=== PATIENT | female | born 1940 | race Caucasian/White ===

== ENCOUNTER 2019-02-26 18:01 | Inpatient (IN) ==
[2019-02-26] MEDS ORDERED: SODIUM CHLORIDE 0.9% 500 ML IV SCH (18:30)
--- NOTE | 2019-02-26 18:34 | XRay Report ---
XR chest 1V portable CLINICAL HISTORY: Chest Pain dyspnea COMPARISON STUDY: No previous studies for comparison. FINDINGS: The bones soft tissues and hemidiaphragms are normal. The cardiomediastinal silhouette is n ormal. The lungs are clear. The pulmonary vasculature is normal. IMPRESSION: Negative chest. The above report was generated using voice recognition software. It may contain grammatical, syntax or spelling errors. Electronically signed by: Mal Davis M.D. 02/26/2019 6:33 PM
[2019-02-26] MEDS: METOPROLOL TARTRATE 1 MG/ML VIAL IV PRN ×3 (18:37→19:17)
[2019-02-26 18:40] LABS: Basophils # (auto) 0.05 K/uL (0-0.2); Basophils % (auto) 0.7 %; Eosinophils # (auto) 0.09 K/uL (0-0.5); Eosinophils % (auto) 1.2 %; Hematocrit (blood only) 40.8 % (37-47); Hemoglobin 13.8 g/dL (12.0-16.0); Immature Granulocytes # (auto) 0.02 K/uL (0.00-0.02); Immature Granulocytes % (auto) 0.3 %; Lymphocytes # (auto) 1.51 K/uL (1.2-3.4); Lymphocytes % (auto) 20.1 %; Mean Corpuscular Hemoglobin 32.5 pg (25-34); Mean Corpuscular Hgb Conc 33.8 g/dL (32-36); Mean Corpuscular Volume 96.2 fL (80-100); Mean Platelet Volume 11.7 fL (7.4-10.4); Monocytes # (auto) 0.46 K/uL (0.11-0.59); Monocytes % (auto) 6.1 %; Neutrophils # (auto) 5.39 K/uL (1.4-6.5); Neutrophils % (auto) 71.6 %; Platelet Count 230 K/uL (130-400); RDW Standard Deviation 48.7 fL (36.4-46.3); Red Blood Count 4.24 M/uL (4.2-5.4); White Blood Count 7.52 K/uL (4.8-10.8)
[2019-02-26 18:59] LABS: Alanine Aminotransferase 49 U/L (12-78); Albumin Level 4.1 gm/dl (3.4-5.0); Aspartate Aminotransferase 38 U/L (15-37); BUN Creatinine Ratio 18.7 (10-20); Blood Urea Nitrogen 18 mg/dl (7-18); Calcium 9.6 mg/dl (8.5-10.1); Carbon Dioxide 27 mmol/L (21-32); Chloride 101 mmol/L (98-107); Creatinine Clr Calc Pharmacy 46.8 ml/min; Est GFR (African American) 64.5; Est GFR (Non-African American) 55.6; Glucose 111 mg/dl (70-99); Lipase 79 U/L (73-393); Potassium 3.7 mmol/L (3.5-5.1); Sodium 135 mmol/L (136-145)
[2019-02-26 19:04] LABS: Alkaline Phosphatase 78 U/L (45-117); Bilirubin,Total 0.9 mg/dl (0.2-1); Globulin 4.2 gm/dl (2.5-4.0); Total Protein 8.3 gm/dl (6.4-8.2); Troponin I < 0.015 ng/ml (0-0.045)
[2019-02-26] MEDS ORDERED: METOPROLOL TARTRATE 25 MG TAB PO STA (19:59)
[2019-02-26] MEDS ORDERED: POTASSIUM CHLORIDE 20 MEQ TABCR PO STA (20:00)
[2019-02-26] MEDS ORDERED: METOPROLOL TARTRATE 50 MG TAB PO STA (20:01)
[2019-02-26 20:18] LABS: Partial Thromboplastin Ratio 0.9; Partial Thromboplastin Time 24.6 Seconds (21.0-31.0)
[2019-02-26] MEDS ORDERED: Heparin IV Standard *NO* Bolus IV ONE (20:25)
[2019-02-26 20:28] LABS: Magnesium 1.9 mg/dl (1.8-2.4)
[2019-02-26] MEDS ORDERED: MAGNESIUM SULFATE / D5W 1 GM/100 ML BAG IV ONE (20:37)
[2019-02-26 20:40] LABS: T4 Free Thyroxine 1.44 ng/dl (0.8-1.6)
[2019-02-26] MEDS ORDERED: MAGNESIUM SULFATE 1GM / D5W BAG IV ONE (20:47)
[2019-02-26] MEDS ORDERED: HEPARIN 25000 UNIT/500 ML D5W IV ONE (20:48)
[2019-02-26] MEDS ORDERED: dilTIAZem HCl 5 MG/ML 5 ML VIAL IV STA (21:00)
--- NOTE | 2019-02-26 21:01 | History & Physical Report ---
Date of Service February 26, 2019 Assessment & Plan (1) Atrial fibrillation with RVR: New onset Unclear precipitant Hyperglycemia rule out DM PCU Change home Atenolol to Lopressor to allow for titration for higher dose IV heparin for thromboembolic prophylaxis TTE, Cardiology consult RE new onset A. fib (Patient's family requesting for Dr. Prince.) Check hemoglobin A1c DVT prophylaxis. Heparin Full code Patient's requesting updates from providers. Mr. Sheldon Crowell, contact #[phone]. History of Present Illness Chief Complaint: Chest discomfort, shortness of breath Primary Care Provider: Inga Fontaine PA-C History obtained from patient, family, and records. Medical history significant for hypertension, glaucoma, history Lyme disease status post Rx. Last week patient noted nasal congestion symptoms, self-limiting. No OTC decongestant intake. Few days history of chest pressure, shortness of breath especially on exertion. No cough, no palpitations. Legs a little more swollen than usual. Fatigue symptoms noted as well. Recent travel to [place] for a family vacation a few weeks ago. Patient compliant with home medications. Does not check blood pressure at home. Patient seen at PCPs office. EKG showed A. fib. Patient sent to the ER for evaluation. Medical History as above Surgical History : Breast reduction, BTL, cataract surgery Family History : Stroke, heart disease, leukemia Personal/Social history : Non-smoker, occasional EtOH intake, retired medical b illing specialist Allergies Allergy/AdvReac Type Severity Reaction Status Date / Time latex Allergy Unknown HIVES Verified 02/26/19 19:52 No Known Drug Allergies Allergy Unknown . Verified 12/28/15 06:24 Home Medications Home Medications Medication Instructions Recorded Confirmed Type C,E,zinc,copper [id number] 1 cap PO DAILY 02/26/19 02/26/19 History [Ocuvite Adult 50 Plus] aspirin [Aspir-81] 81 mg PO DAILY 02/26/19 02/26/19 History atenolol 25 mg PO BID 02/26/19 02/26/19 History hydrochlorothiazide 25 mg PO DAILY 02/26/19 02/26/19 History loratadine 10 mg PO DAILY PRN 02/26/19 02/26/19 History multivitamin [Multiple Vitamins] 1 tab PO DAILY 02/26/19 02/26/19 History travoprost [Travatan Z] 1 drp OPB HS 02/26/19 02/26/19 History Past Med/Surg History Medical History Hypertension Surgical History No pertinent past surgical history Social History Preferred Language: Surinamese Communication Ability: Effective Sash Repairer Required: No Beliefs That Will Affect Care: None Current Living Situation: Spouse Other Information That Helps Us Care for You: No Feels Safe at Home: Yes Safety Concerns: Feels Safe At This Time Smoking Status: Never smoker Do You Dip or Chew Tobacco: No ; Second Hand Exposure: No ; Tobacco Cessation Education Requested by Patient: No Hx Alcohol Use: No Hx Substance Use: No Review of Systems Review of Systems: As per HPI, all 10 systems reviewed, all other ROS negative Physical Exam Physical Exam: GENERAL: Comfortable, obese, pleasant, no respiratory distress SKIN: Normal color, warm HEENT: [place] palpebral conjunctivae, no ptosis, dry buccal mucosa NECK : Supple, short neck, no tenderness CHEST : CTA, no tenderness HEART : Tachycardic, irregular, no obvious murmurs ABDOMEN: Some distention, nontender EXTREMITIES : Minimal LE swelling, no LE tenderness, no other conspicuous deformities noted NEUROLOGIC : Coherent, no facial asymmetry, no other gross focality Results & Data Vital Signs (Past 12 Hours) Vital Signs Temp Pulse Resp BP Pulse Ox 02/26/19 19:17 133 H 144/83 H 02/26/19 19:15 130 H 19 144/83 H 98 02/26/19 19:00 147 H 19 134/85 97 02/26/19 18:50 133 H 16 123/97 96 02/26/19 18:45 149 H 23 99 02/26/19 18:40 132 H 15 97 02/26/19 18:38 97 02/26/19 18:37 132 H 21 164/58 H 97 02/26/19 18:30 135 H 19 97 02/26/19 18:22 142 H 20 02/26/19 18:05 36.4 C L 114 H 18 159/101 H 98 Laboratory Results Laboratory Results WBC 7.52 K/uL (4.8-10.8) 02/26/19 18:30 RBC 4.24 M/uL (4.2-5.4) 02/26/19 18:30 Hgb 13.8 g/dL (12.0-16.0) 02/26/19 18:30 Hct 40.8 % (37-47) 02/26/19 18:30 MCV 96.2 fL (80-100) 02/26/19 18:30 MCH 32.5 pg (25-34) 02/26/19 18: MCHC 33.8 g/dL (32-36) 02/26/19 18:30 RDW Std Deviation 48.7 fL (36.4-46.3) H 02/26/19 18:30 RDW Coeff of Harsha 14.0 % (11.5-14.5) 02/26/19 18: Plt Count 230 K/uL (130-400) 02/26/19 18:30 MPV 11.7 fL (7.4-10.4) H 02/26/19 18:30 Immature Gran % (Auto) 0.3 % 02/26/19 18:30 Neut % (Auto) 71.6 % 02/26/19 18:30 Lymph % (Auto) 20.1 % 02/26/19 18:30 [place] % (Auto) 6.1 % 02/26/19 18:30 Eos % (Auto) 1.2 % 02/26/19 18:30 Baso % (Auto) 0.7 % 02/26/19 18:30 Immature Gran # (Auto) 0.02 K/uL (0.00-0.02) 02/26/19 18:30 Neut # (Auto) 5.39 K/uL (1.4-6.5) 02/26/19 18:30 Lymph # (Auto) 1.51 K/uL (1.2-3.4) 02/26/19 18:30 [place] # (Auto) 0.46 K/uL (0.11-0.59) 02/26/19 18:30 Eos # (Auto) 0.09 K/uL (0-0.5) 02/26/19 18:30 Baso # (Auto) 0.05 K/uL (0-0.2) 02/26/19 18:30 APTT 24.6 Seconds (21.0-31.0) 02/26/19 18:30 PTT Ratio 0.9 02/26/19 18:30 Sodium 135 mmol/L (136-145) L 02/26/19 18:30 Potassium 3.7 mmol/L (3.5-5.1) 02/26/19 18:30 Chloride 101 mmol/L (98-107) 02/26/19 18:30 Carbon Dioxide 27 mmol/L (21-32) 02/26/19 18:30 Anion Gap 7.0 (3-11) 02/26/19 18:30 BUN 18 mg/dl (7-18) 02/26/19 18:30 Creatinine 0.98 mg/dl (0.6-1.2) 02/26/19 18:30 Est Cr Clr Drug Dosing 46.8 ml/min 02/26/19 18:30 Est GFR ( Amer) 64.5 02/26/19 18:30 Est GFR (Non-Af Amer) 55.6 02/26/19 18:30 BUN/Creatinine Ratio 18.7 (10-20) 02/26/19 18:30 Glucose 111 mg/dl (70-99) H 02/26/19 18:30 Calcium 9.6 mg/dl (8.5-10.1) 02/26/19 18:30 Magnesium 1.9 mg/dl (1.8-2.4) 02/26/19 18:30 Total Bilirubin 0.9 mg/dl (0.2-1) 02/26/19 18:30 AST 38 U/L (15-37) H 02/26/19 18:30 ALT 49 U/L (12-78) 02/26/19 18:30 Alkaline Phosphatase 78 U/L (45-117) 02/26/19 18:30 Troponin I < 0.015 ng/ml (0-0.045) 02/26/19 18:30 Total Protein 8.3 gm/dl (6.4-8.2) H 02/26/19 18:30 Albumin 4.1 gm/dl (3.4-5.0) 02/26/19 18:30 Globulin 4.2 gm/dl (2.5-4.0) H 02/26/19 18:30 Albumin/Globulin Ratio 1.0 (0.9-2) 02/26/19 18:30 Lipase 79 U/L (73-393) 02/26/19 18:30 TSH 5.540 uIu/ml (0.300-4.500) H 02/26/19 18:30 Free T4 1.44 ng/dl (0.8-1.6) 02/26/19 18:[address] chest: 1. No evidence for pulmonary embolus. 2. Very small bilateral pleural effusions with findings of pulmonary vascular congestion. EKG as per my interpretation: Rate 145, A. fib, LAD, LAFB, T wave flattening inferior leads abnormalities inferior leads
[2019-02-26] MEDS ORDERED: OPTIRAY 320 125ml IV PRN (21:19)
--- NOTE | 2019-02-26 21:32 | CT Scan Report ---
CT angio chest PE protocol CT DOSE: 458.71 mGy.cm HISTORY: Chest pain PE TECHNIQUE: Multiaxial CT images of the chest were performed following the intravenous administration of contrast to evaluate the pulmonary arteries. Maximal intensity projection images were also obtaine d. A dose lowering technique was utilized adhering to the principles of ALARA. COMPARISON STUDY: None. FINDINGS: The pulmonary vasculature enhances appropriately. There are no filling defects. Lungs are grossly clear. Moderate prominence of the pulmonary vasculature. Small right and to a lesse r extent left pleural effusion. No evidence for focal infiltrative change. IMPRESSION: 1. No evidence for pulmonary embolus. 2. Very small bilateral pleural effusions with findings of pulmonary vascular congestion. The above report was generated using voice recognition software. It may contain grammatical, syntax or spelling errors. Electronically signed by: Mal Davis M.D. 02/26/2019 9:31 PM
[2019-02-26] MEDS: HEPARIN SODIUM/DEXTROSE 25,000 UNITS/500 ML BAG IV SCH (21:39)
[2019-02-26] MEDS ORDERED: TRAMADOL HCL 50 MG TABLET PO PRN (22:35)
[2019-02-26] MEDS ORDERED: LORATADINE 10 MG TAB PO PRN (22:35)
[2019-02-26] MEDS ORDERED: PROMETHAZINE HCL 12.5 MG in SODIUM CHLORIDE 0.9% 50 ML IV PRN (22:35)
[2019-02-26] MEDS ORDERED: ACETAMINOPHEN 325 MG TAB PO PRN (22:35)
--- NOTE | 2019-02-26 23:01 | Emergency Department Note ---
Entered by Yuli Metzger acting as a scribe for History of Present Illness General Chief complaint: Cardiac Assessment Stated complaint: REF BY CRAIG GREER FOR CARDIAC ASSESSMENT Source: patient History of Present Illness Onset (ago): day(s) 3 Location: chest Pain Consistency: + constant Quality: + other (pressure) Exacerbated By: + other (walking) Associated symptoms: + other (palpitations); no diaphoresis, no fever/chills and no nausea/vomiting Treatments prior to arrival: none The patient is a 79 year old female who presents to the Emergency Room with complaints of shortness of breath and chest pressure that has been present for the past 3 days. The patient reports that she is experiencing some chest pressure that has been constant. The chest pain and shortness of breath is exacerbated with walking. She denies nausea, vomiting, fever, or sweating. The patient reports experiencing some palpitation, which are intermittent. She also complains of weakness over the past few days. The patient had an EKG done at her PCP, which showed A-fib. He recommended that the patient come to the ED to be evaluated. The patient reports a history of hypertension, and takes baby aspirin daily. Home Medications Home Medications Medication Instructions Recorded Confirmed Type C,E,zinc,copper [id number] 1 cap PO DAILY 02/26/19 02/26/19 History [Ocuvite Adult 50 Plus] aspirin [Aspir-81] 81 mg PO DAILY 02/26/19 02/26/19 History atenolol 25 mg PO BID 02/26/19 02/26/19 History hydrochlorothiazide 25 mg PO DAILY 02/26/19 02/26/19 History loratadine 10 mg PO DAILY PRN 02/26/19 02/26/19 History multivitamin [Multiple Vitamins] 1 tab PO DAILY 02/26/19 02/26/19 History travoprost [Travatan Z] 1 drp OPB HS 02/26/19 02/26/19 History Allergies Allergy/AdvReac Type Severity Reaction Status Date / Time latex Allergy Unknown HIVES Verified 02/26/19 19:52 No Known Drug Allergies Allergy Unknown . Verified 12/28/15 06:24 Past Med/Surg History Medical History Hypertension Surgical History No pertinent past surgical history Social History Preferred Language: Korean Communication Ability: Effective On Call Pharmacy Technician Required: No Beliefs That Will Affect Care: None Current Living Situation: Spouse Other Information That Helps Us Care for You: No Feels Safe at Home: Yes Safety Concerns: Feels Safe At This Time Smoking Status: Never smoker Do You Dip or Chew Tobacco: No ; Second Hand Exposure: No ; Tobacco Cessation Education Requested by Patient: No Hx Alcohol Use: No Hx Substance Use: No Review of Systems See HPI for pertinent positives & negatives. and A total of 10 systems reviewed and were otherwise negative Physical Exam Vital Signs Vital Signs - 24 hr 02/26/19 18:05 02/26/19 18:22 02/26/19 18:30 Temperature 36.4 C L Temperature Source Oral Pulse Rate 114 H 142 H 135 H Pulse Rate from SpO2 Sensor 104 H Respiratory Rate 18 20 19 Blood Pressure 159/101 H Blood Pressure Mean 120 Pulse Oximetry 98 97 Oxygen Delivery Method Room Air Sepsis Recent Fever Within 48 Hours No Sepsis New/Unexplained Change in Mental Status No Sepsis Action Taken by Nursing No Action Required 02/26/19 18:37 02/26/19 18:38 02/26/19 18:40 Temperature Temperature Source Pulse Rate 132 H 132 H Pulse Rate from SpO2 Sensor 114 H 107 H Respiratory Rate 21 15 Blood Pressure 164/58 H Blood Pressure Mean 66 Pulse Oximetry 97 97 97 Oxygen Delivery Method Room Air Sepsis Recent Fever Within 48 Hours Sepsis New/Unexplained Change in Mental Status Sepsis Action Taken by Nursing 02/26/19 18:45 02/26/19 18:50 02/26/19 19:00 Temperature Temperature Source Pulse Rate 149 H 133 H 147 H Pulse Rate from SpO2 Sensor 124 H 133 H 95 H Respiratory Rate 23 16 19 Blood Pressure 123/97 134/85 Blood Pressure Mean 104 101 Pulse Oximetry 99 96 97 Oxygen Delivery Method Sepsis Recent Fever Within 48 Hours Sepsis New/Unexplained Change in Mental Status Sepsis Action Taken by Nursing 02/26/19 19:15 02/26/19 19:17 02/26/19 19:31 Temperature Temperature Source Pulse Rate 130 H 133 H 128 H Pulse Rate from SpO2 Sensor 86 79 Respiratory Rate 19 17 Blood Pressure 144/83 H 144/83 H 138/110 H Blood Pressure Mean 93 122 Pulse Oximetry 98 96 Oxygen Delivery Method Room Air Sepsis Recent Fever Within 48 Hours Sepsis New/Unexplained Change in Mental Status Sepsis Action Taken by Nursing 02/26/19 19:46 02/26/19 20:00 02/26/19 20:16 Temperature Temperature Source Pulse Rate 123 H 137 H 125 H Pulse Rate from SpO2 Sensor 107 H 113 H 108 H Respiratory Rate 17 16 20 Blood Pressure 147/91 H 146/99 H 143/73 H Blood Pressure Mean 106 114 88 Pulse Oximetry 97 99 98 Oxygen Delivery Method Sepsis Recent Fever Within 48 Hours Sepsis New/Unexplained Change in Mental Status Sepsis Action Taken by Nursing 02/26/19 20:31 02/26/19 20:45 Temperature Temperature Source Pulse Rate 129 H 128 H Pulse Rate from SpO2 Sensor 115 H Respiratory Rate 23 26 H Blood Pressure 135/96 158/98 H Blood Pressure Mean 110 140 Pulse Oximetry 98 98 Oxygen Delivery Method Sepsis Recent Fever Within 48 Hours Sepsis New/Unexplained Change in Mental Status Sepsis Action Taken by Nursing GENERAL: sitting up in bed, wearing hospital gown, talking in full sentences, al ert, well nourished, no acute distress, non-toxic EYE EXAM: normal conjunctiva, PERRL and EOM's grossly intact OROPHARYNX: no exudate, no erythema, lips, buccal mucosa, and tongue normal and mucous membranes are moist NECK: supple, no nuchal rigidity, no adenopathy, non-tender LUNGS: Clear to auscultation. Normal chest wall mechanics HEART: Tachycardic. Irregularly irregular rhythm, S1 normal and S2 normal ABDOMEN: abdomen soft, non-tender, normo-active bowel sounds, no masses, no rebound or guarding. SKIN: no rashes and no bruising UPPER EXTREMITIES: upper extremities are grossly normal. LOWER EXTREMITIES: No pitting edema. Calves equal bilaterally. NEURO EXAM: Normal sensorium, cranial nerves II-XII grossly intact, normal speech, no gross weakness of arms, no gross weakness of legs. Course Course 1810: Past medical records reviewed. The patient was evaluated in room A12B. A complete history and physical exam was performed. 1855: I rechecked on the patient, who was receiving her second dose of Lopressor 5 mg IV. Her blood pressure was at 130, with heart rate at 120. She has no complaints after the second dose. 1952: I spoke to Dr. Vera, [facility] Hospitalist, regarding the patient. He agreed to take over care of the patient. The patient verbally expressed understanding and agreement of the treatment plan. The patient will be evaluated for further treatment. 2011: Monitor shows the patient's heart rate 131 with RVR Administered Medications Heparin Sodium/Dextrose (Heparin Sodium/Dextrose) 25,000 units in 500 mls @ 22 mls/hr IV .[id number] [facility]; Protocol Stop: 03/28/19 20:29 Last Admin: 02/26/19 21:39 Dose: 1,100 units/hr, 22 mls/hr Documented by: [id number] Cosigned by: [id number] Ioversol (Optiray 320 125ml) 120 ml IV ONCE PRN PRN Reason: Interaction Checking Stop: 03/02/19 21:18 Last Admin: 02/26/19 21:19 Dose: 120 ml Documented by: [id number] Discontinued Medications Diltiazem HCl (Cardizem) 20 mg IV NOW STA Stop: 02/26/19 21:01 Last Admin: 02/26/19 21:29 Dose: 20 mg Documented by: [id number] Cosigned by: [id number] Heparin Sodium/Dextrose (Heparin Sodium/Dextrose) Confirm Administered Dose 25,000 units IV .STK-MED ONE Stop: 02/26/19 20:49 Last Admin: 02/26/19 21:00 Dose: Not Given Documented by: [id number] Sodium Chloride (Nss) 500 mls @ 999 mls/hr IV .Q31M [facility] Stop: 02/26/19 19:00 Last Infusion: 02/26/19 19:08 Dose: 0 mls/hr Documented by: [id number] Admin: 02/26/19 18:37 Dose: 999 mls/hr Documented by: [id number] Magnesium Sulfate/Dextrose (Magnesium Sulfate / D5w) 1 gm in 100 mls @ 100 mls/hr IV ONE ONE Stop: 02/26/19 21:36 Last Infusion: 02/26/19 22:36 Dose: 0 mls/hr Documented by: [id number] Admin: 02/26/19 21:29 Dose: 100 mls/hr Documented by: [id number] Magnesium Sulfate/Dextrose (Magnesium Sulfate / D5w) Confirm Administered Dose 1 gm IV .STK-MED ONE Stop: 02/26/19 20:48 Last Admin: 02/26/19 21:00 Dose: Not Given Documented by: [id number] Metoprolol Tartrate (Lopressor) 5 mg IV Q5M PRN PRN Reason: Tachycardia Stop: 03/28/19 18:17 Last Admin: 02/26/19 19:17 Dose: 5 mg Documented by: [id number] Admin: 02/26/19 18:50 Dose: 5 mg Documented by: [id number] Admin: 02/26/19 18:37 Dose: 5 mg Documented by: [id number] Metoprolol Tartrate (Lopressor) 25 mg PO NOW STA Stop: 02/26/19 20:00 Last Admin: 02/26/19 20:32 Dose: Not Given Documented by: [id number] Metoprolol Tartrate (Lopressor) 50 mg PO NOW STA Stop: 02/26/19 20:02 Last Admin: 02/26/19 20:33 Dose: 50 mg Documented by: [id number] Potassium Chloride (Klor-Con M20) 40 meq PO NOW STA Stop: 02/26/19 20:01 Last Admin: 02/26/19 20:33 Dose: 40 meq Documented by: [id number] Critical Care Time Critical Care Time: Yes Total Critical Care Time: 35 I have personally spent 35 minutes of critical care time in the direct management of this patient. This includes bedside care, interpretation of diagnostic studies, and testing, discussion with consultants, patient, and family members, and other required patient management activities. This 35 minutes is in excess of all separately billable procedures. Medical Decision Making Differential Diagnosis Differential diagnosis includes: infections, reactive airway disease, pneumonia, pneumothorax, COPD, CHF, cardiac ischemia, pulmonary embolism, musculoskeletal, gastrointestinal, as well as others were entertained. Medical Records Attestation: I reviewed the patient's medical records. Home Medications Current Medication List: was personally reviewed by me Laboratory Data Attestation: I reviewed the patient's lab results. Result diagrams: 02/26/19 18:30 02/26/19 18:30 Lab Results 02/26/19 02/26/19 02/26/19 Range/Units 18:30 18:30 18:30 WBC 7.52 (4.8-10.8) K/uL RBC 4.24 (4.2-5.4) M/uL Hgb 13.8 (12.0-16.0) g/dL Hct 40.8 (37-47) % MCV 96.2 (80-100) fL MCH 32.5 (25-34) pg MCHC 33.8 (32-36) g/dL RDW Std Deviation 48.7 H (36.4-46.3) fL RDW Coeff of Harsha 14.0 (11.5-14.5) % Plt Count 230 (130-400) K/uL MPV 11.7 H (7.4-10.4) fL Immature Gran % (Auto) 0.3 % Neut % (Auto) 71.6 % Lymph % (Auto) 20.1 % [place] % (Auto) 6.1 % Eos % (Auto) 1.2 % Baso % (Auto) 0.7 % Immature Gran # (Auto) 0.02 (0.00-0.02) K/uL Neut # (Auto) 5.39 (1.4-6.5) K/uL Lymph # (Auto) 1.51 (1.2-3.4) K/uL [place] # (Auto) 0.46 (0.11-0.59) K/uL Eos # (Auto) 0.09 (0-0.5) K/uL Baso # (Auto) 0.05 (0-0.2) K/uL APTT 24.6 (21.0-31.0) Seconds PTT Ratio 0.9 Sodium 135 L (136-145) mmol/L Potassium 3.7 (3.5-5.1) mmol/L Chloride 101 (98-107) mmol/L Carbon Dioxide 27 (21-32) mmol/L Anion Gap 7.0 (3-11) BUN 18 (7-18) mg/dl Creatinine 0.98 (0.6-1.2) mg/dl Est Cr Clr Drug Dosing 46.8 ml/min Est GFR ( Amer) 64.5 Est GFR (Non-Af Amer) 55.6 BUN/Creatinine Ratio 18.7 (10-20) Glucose 111 H (70-99) mg/dl Calcium 9.6 (8.5-10.1) mg/dl Magnesium 1.9 (1.8-2.4) mg/dl Total Bilirubin 0.9 (0.2-1) mg/dl AST 38 H (15-37) U/L ALT 49 (12-78) U/L Alkaline Phosphatase 78 (45-117) U/L Troponin I < 0.015 (0-0.045) ng/ml Total Protein 8.3 H (6.4-8.2) gm/dl Albumin 4.1 (3.4-5.0) gm/dl Globulin 4.2 H (2.5-4.0) gm/dl Albumin/Globulin Ratio 1.0 (0.9-2) Lipase 79 (73-393) U/L TSH 5.540 H (0.300-4.500) uIu/ml Free T4 1.44 (0.8-1.6) ng/dl Imaging Data Radiologist's Impression: Radiology results as stated below per my review and the radiologist's interpretation: XR chest 1V portable CLINICAL HISTORY: Chest Pain dyspnea COMPARISON STUDY: No previous studies for comparison. FINDINGS: The bones soft tissues and hemidiaphragms are normal. The cardiomediastinal silhouette is normal. The lungs are clear. The pulmonary va sculature is normal. IMPRESSION: Negative chest. The above report was generated using voice recognition software. It may contain grammatical, syntax or spelling errors. Electronically signed by: Mal Davis M.D. 02/26/2019 6:33 PM ECG Data Attestation: I personally reviewed and interpreted this ECG as follows: Indication: + chest pain Rate (beats per minute): 145 Rhythm: + atrial fibrillation ECG Intervals/blocks: + Normal QRS ECG [place]: + Left axis deviation ECG ST segments: + T-wave inversions (Non specific T wave changes Inferiorly) ECG Findings: no PVCs Blood Pressure Blood Pressure Findings: Elevated blood pressure Blood Pressure Disposition: further management by hospitalist VERONICA Mcclellan Patient is a 79-year-old female referred in by PCP as she has been feeling weak and having shortness of breath and chest pain with exertion. Upon arrival she is found to be in A. fib with RVR. Heart rate was in the 140s. IV was established blood work was obtained. Labs show no significant leukocytosis or anemia. BMP with mild hyponatremia. LFTs bilirubin was unremarkable. Troponin was negative. Lipase is unremarkable as well as TSH was slightly elevated. Patient was given 3 doses of IV Lopressor with a heart rate trended down to the 120s. Blood pressures are maintained. Chest x-ray unremarkable. EKG as stated above showed A. fib with RVR. She is updated bedside. Discussed with the hospitalist. She is monitored closely due to the multiple doses of Lopressor. She is been to the hospital for A. fib with RVR. Impression & Plan Atrial fibrillation with RVR, Chest pain, Shortness of breath Discharge Plan Visit Data *Final* Discharge Date/Time: 02/26/19 22:02 Chief Complaint: Cardiac Assessment Stated Complaint: REF BY July FOR CARDIAC ASSESSMENT ED Provider: Huey Shultz Discharge Problem: Atrial fibrillation with RVR, Chest pain, Shortness of breath Patient Disposition: Admitted As Inpatient Discharge Instructions Interventions: ED Discharge Assessment Last Done: 02/26/19 22:02 Discharge Problem: Chest pain Qualifiers: Chest pain type: unspecified Qualified Code(s): R07.9 - Chest pain, unspecified The scribe's documentation has been prepared under my direction and personally reviewed by me in its entirety. I confirm that the note above accurately reflects all work, treatment, procedures, and medical decision making performed by me.
[2019-02-27] MEDS ORDERED: METOPROLOL TARTRATE 50 MG TAB PO STA (00:38)
[2019-02-27] MEDS ORDERED: dilTIAZem HCl 5 MG/ML 5 ML VIAL IV ONE ×3 (00:45→09:00)
[2019-02-27 03:28] LABS: Basophils # (auto) 0.03 K/uL (0-0.2); Basophils % (auto) 0.4 %; Eosinophils # (auto) 0.12 K/uL (0-0.5); Eosinophils % (auto) 1.8 %; Hematocrit (blood only) 35.7 % (37-47); Hemoglobin 12.2 g/dL (12.0-16.0); Immature Granulocytes # (auto) 0.02 K/uL (0.00-0.02); Immature Granulocytes % (auto) 0.3 %; Lymphocytes # (auto) 1.79 K/uL (1.2-3.4); Lymphocytes % (auto) 26.6 %; Mean Corpuscular Hemoglobin 32.2 pg (25-34); Mean Corpuscular Hgb Conc 34.2 g/dL (32-36); Mean Corpuscular Volume 94.2 fL (80-100); Mean Platelet Volume 11.6 fL (7.4-10.4); Monocytes # (auto) 0.44 K/uL (0.11-0.59); Monocytes % (auto) 6.5 %; Neutrophils # (auto) 4.34 K/uL (1.4-6.5); Neutrophils % (auto) 64.4 %; Platelet Count 194 K/uL (130-400); RDW Standard Deviation 47.8 fL (36.4-46.3); Red Blood Count 3.79 M/uL (4.2-5.4); White Blood Count 6.74 K/uL (4.8-10.8)
[2019-02-27 03:42] LABS: Partial Thromboplastin Ratio 1.5; Partial Thromboplastin Time 41.6 Seconds (21.0-31.0)
[2019-02-27] MEDS ORDERED: METOPROLOL TARTRATE 1 MG/ML VIAL IV STA (03:45)
[2019-02-27 04:08] LABS: BUN Creatinine Ratio 18.6 (10-20); Calcium 9.2 mg/dl (8.5-10.1); Creatinine Clr Calc Pharmacy 54.1 ml/min; Est GFR (African American) 76.6; Est GFR (Non-African American) 66.1; Potassium 3.5 mmol/L (3.5-5.1)
[2019-02-27] MEDS ORDERED: HEPARIN IV BOLUS 2,000 UNITS in SYRINGE 0 ML IV ONE (04:15)
[2019-02-27] MEDS ORDERED: dilTIAZem HCl 5 MG/ML 5 ML VIAL IV STA (04:48)
[2019-02-27] MEDS ORDERED: POTASSIUM CHLORIDE 10 MEQ TABCR PO STA (04:50)
[2019-02-27] MEDS: METOPROLOL TARTRATE 50 MG TAB PO SCH ×3 (07:56→20:25)
[2019-02-27] MEDS: MULTIVITAMIN TAB PO SCH (07:56)
[2019-02-27] MEDS ORDERED: METOPROLOL TARTRATE 50 MG TAB PO SCH ×2 (09:00)
[2019-02-27] MEDS ORDERED: dilTIAZem HCl 125 MG in DEXTROSE 5% 100 ML IV SCH (09:00)
[2019-02-27 10:28] LABS: Partial Thromboplastin Ratio 2.2
[2019-02-27 10:33] LABS: Partial Thromboplastin Time 58.7 Seconds (21.0-31.0)
[2019-02-27 10:45] LABS: Estimated Average Glucose 108 mg/dl; Hemoglobin A1C 5.4 % (4.5-5.6)
--- NOTE | 2019-02-27 12:35 | Cardiology Consultation ---
Date of Consultation February 27, 2019 Assessment & Plan (1) Atrial fibrillation with RVR: The pathophysiologic pathophysiology of atrial fibrillation along with its treatment options were discussed with the patient at great lengths. At this time she was counseled that we will continue her on IV heparin for anticoagulation and started on a Cardizem drip for greater rate control. She is already on metoprolol 50 mg 3 times daily and that will be continued for now. Later today we will try to give her oral Cardizem to see if we can get her off the drip. We discussed rate versus rhythm control strategy and she is leaning towards anticoagulation for 30 days and then possible cardioversion at this time. But a final decision will be made later during the hospitalization. (2) Shortness of breath: Secondary to above (3) Hypertension: controlled History of Present Illness Reason for Consultation: New onset afib with RVR Requesting Physician: Dr. Srinivasan Attending Physician: Nigel Srinivasan MD History of Present Illness It was my pleasure to see Mrs. Crowell in consultation today February 27, 2019. She is a very pleasant 79-year-old woman who is not known to our cardiology practice. She presented to [facility] on 02/26/2019 from her primary care physician's office after being evaluated for fatigue and dyspnea. She states that she is been in normal health up until about 3 weeks ago after returning from a family trip to [place]. Afterward she started noticing that she is feeling tired and rundown but then for the last week or so she started noticing she was getting dyspneic with exertion. Over the next week her dyspnea progressed to the point was happy with even menial tasks. So she was seen by her primary care provider who did an EKG and found A. fib with rapid ventricular response and she was transferred to [facility] emergency department. Upon arrival she was confirmed to be in A. fib with RVR and she was started on heparin along with various rate controlling agents. Currently at rest she states she feels fine. She states that looking back may be she felt some palpitations but nothing significant. Allergies Allergy/AdvReac Type Severity Reaction Status Date / Time latex Allergy Unknown HIVES Verified 02/26/19 19:52 No Known Drug Allergies Allergy Unknown . Verified 12/28/15 06:24 Home Medications Home Medications Medication Instructions Recorded Confirmed Type C,E,zinc,copper [id number] 1 cap PO DAILY 02/26/19 02/26/19 History [Ocuvite Adult 50 Plus] aspirin [Aspir-81] 81 mg PO DAILY 02/26/19 02/26/19 History atenolol 25 mg PO BID 02/26/19 02/26/19 History hydrochlorothiazide 25 mg PO DAILY 02/26/19 02/26/19 History loratadine 10 mg PO DAILY PRN 02/26/19 02/26/19 History multivitamin [Multiple Vitamins] 1 tab PO DAILY 02/26/19 02/26/19 History travoprost [Travatan Z] 1 drp OPB HS 02/26/19 02/26/19 History Patient History Medical History Hypertension Surgical History No pertinent past surgical history Social History Preferred Language: Dutch Communication Ability: Effective Dispatcher Tugboat Required: No Beliefs That Will Affect Care: None Current Living Situation: Spouse Other Information That Helps Us Care for You: No Feels Safe at Home: Yes Safety Concerns: Feels Safe At This Time Smoking Status: Never smoker Do You Dip or Chew Tobacco: No ; Second Hand Exposure: No ; Tobacco Cessation Education Requested by Patient: No Hx Alcohol Use: No Hx Substance Use: No Review of Systems Review of Systems: All systems reviewed & are unremarkable except as noted in HPI & below Physical Exam Physical Exam: General: Awake, alert and oriented x 3. No acute distress. HEENT: Normocephalic, atraumatic. Pupils equal, round and reactive to light and accommodation. Extraocular muscles are intact. Anicteric sclera. Moist mucous membranes. Neck: No JVD. No bruit. Cardiovascular: irregularly irregular, unable to appreciate murmur, rub or gallop. Pulmonary: Clear to auscultation bilaterally. No rales, rhonchi, or wheezing. Abdomen: Bowel sounds x 4, soft. No rebound, guarding or tenderness. No organomegaly. Extremities: No clubbing, cyanosis or edema. +2 pedal pulses bilaterally. Skin: Warm and dry. Results & Data Vital Signs (Past 12 Hours) Vital Signs Temp Pulse Pulse Resp BP BP Pulse Ox 02/27/19 12:05 36.5 C 114 H 18 137/82 96 02/27/19 08:00 119 H 02/27/19 07:09 36.6 C 98 H 18 137/83 95 02/27/19 04:48 125 H 121/84 02/27/19 04:12 140 H 02/27/19 02:57 36.3 C L 121 H 18 129/87 98 Laboratory Results Laboratory Results - last 24 hr 02/26/19 02/26/19 02/26/19 18:30 18:30 18:30 WBC 7.52 RBC 4.24 Hgb 13.8 Hct 40.8 MCV 96.2 MCH 32.5 MCHC 33.8 RDW Std Deviation 48.7 H RDW Coeff of Harsha 14.0 Plt Count 230 MPV 11.7 H Immature Gran % (Auto) 0.3 Neut % (Auto) 71.6 Lymph % (Auto) 20.1 [place] % (Auto) 6.1 Eos % (Auto) 1.2 Baso % (Auto) 0.7 Immature Gran # (Auto) 0.02 Neut # (Auto) 5.39 Lymph # (Auto) 1.51 [place] # (Auto) 0.46 Eos # (Auto) 0.09 Baso # (Auto) 0.05 APTT 24.6 PTT Ratio 0.9 Sodium 135 L Potassium 3.7 Chloride 101 Carbon Dioxide 27 Anion Gap 7.0 BUN 18 Creatinine 0.98 Est Cr Clr Drug Dosing 46.8 Est GFR ( Amer) 64.5 Est GFR (Non-Af Amer) 55.6 BUN/Creatinine Ratio 18.7 Glucose 111 H Estimat Average Glucose Hemoglobin A1c Calcium 9.6 Magnesium 1.9 Total Bilirubin 0.9 AST 38 H ALT 49 Alkaline Phosphatase 78 Troponin I < 0.015 Total Protein 8.3 H Albumin 4.1 Globulin 4.2 H Albumin/Globulin Ratio 1.0 Lipase 79 TSH 5.540 H Free T4 1.44 02/27/19 02/27/19 02/27/19 03:13 03:13 03:13 WBC 6.74 RBC 3.79 L Hgb 12.2 Hct 35.7 L MCV 94.2 MCH 32.2 MCHC 34.2 RDW Std Deviation 47.8 H RDW Coeff of Harsha 14.0 Plt Count 194 MPV 11.6 H Immature Gran % (Auto) 0.3 Neut % (Auto) 64.4 Lymph % (Auto) 26.6 [place] % (Auto) 6.5 Eos % (Auto) 1.8 Baso % (Auto) 0.4 Immature Gran # (Auto) 0.02 Neut # (Auto) 4.34 Lymph # (Auto) 1.79 [place] # (Auto) 0.44 Eos # (Auto) 0.12 Baso # (Auto) 0.03 APTT 41.6 H PTT Ratio 1.5 Sodium 137 Potassium 3.5 Chloride 105 Carbon Dioxide 27 Anion Gap 5.0 BUN 16 Creatinine 0.85 Est Cr Clr Drug Dosing 54.1 Est GFR ( Amer) 76.6 Est GFR (Non-Af Amer) 66.1 BUN/Creatinine Ratio 18.6 Glucose 100 H Estimat Average Glucose Hemoglobin A1c Calcium 9.2 Magnesium Total Bilirubin AST ALT Alkaline Phosphatase Troponin I Total Protein Albumin Globulin Albumin/Globulin Ratio Lipase TSH Free T4 02/27/19 02/27/19 03:13 09:48 WBC RBC Hgb Hct MCV MCH MCHC RDW Std Deviation RDW Coeff of Harsha Plt Count MPV Immature Gran % (Auto) Neut % (Auto) Lymph % (Auto) [place] % (Auto) Eos % (Auto) Baso % (Auto) Immature Gran # (Auto) Neut # (Auto) Lymph # (Auto) [place] # (Auto) Eos # (Auto) Baso # (Auto) APTT 58.7 H* PTT Ratio 2.2 Sodium Potassium Chloride Carbon Dioxide Anion Gap BUN Creatinine Est Cr Clr Drug Dosing Est GFR ( Amer) Est GFR (Non-Af Amer) BUN/Creatinine Ratio Glucose Estimat Average Glucose 108 Hemoglobin A1c 5.4 Calcium Magnesium Total Bilirubin AST ALT Alkaline Phosphatase Troponin I Total Protein Albumin Globulin Albumin/Globulin Ratio Lipase TSH Free T4 Medications Administered Current Inpatient Medications Acetaminophen (Tylenol) 650 mg PO Q4H PRN PRN Reason: Pain or Fever Stop: 03/28/19 22:34 Heparin Sodium/Dextrose (Heparin Sodium/Dextrose) 25,000 units in 500 mls @ 24 mls/hr IV .[id number] [facility]; Protocol Stop: 03/28/19 20:29 Last Titration: 02/27/19 07:14 Dose: 1,200 units/hr, 24 mls/hr Documented by: Promethazine HCl 12.5 mg/ (Sodium Chloride) 50.5 mls @ 202 mls/hr IV Q6H PRN PRN Reason: Nausea And Vomiting Stop: 03/28/19 22:34 Diltiazem HCl 125 mg/ Dextrose 125 mls @ 15 mls/hr IV .[id number] [facility]; Protocol Stop: 03/29/19 08:59 Last Titration: 02/27/19 11:54 Dose: 15 mg/hr, 15 mls/hr Documented by: Ioversol (Optiray 320 125ml) 120 ml IV ONCE PRN PRN Reason: Interaction Checking Stop: 03/02/19 21:18 Last Admin: 02/26/19 21:19 Dose: 120 ml Documented by: Loratadine (Claritin) 10 mg PO DAILY PRN PRN Reason: Allergy Symptoms Stop: 03/28/19 22:34 Metoprolol Tartrate (Lopressor) 50 mg PO TID [facility] Stop: 03/29/19 07:59 Last Admin: 02/27/19 07:56 Dose: 50 mg Documented by: Multivitamins (Multivitamin Tab) 1 tab PO DAILY [facility] Stop: 03/29/19 08:59 Last Admin: 02/27/19 07:56 Dose: 1 tab Documented by: Tramadol HCl (Ultram) 25 - 50 mg PO Q4H PRN PRN Reason: Pain Stop: 03/28/19 22:34
[2019-02-27] MEDS: dilTIAZem HCL 120 MG CAPCR PO SCH (16:00)
[2019-02-27] MEDS: HEPARIN SODIUM/DEXTROSE 25,000 UNITS/500 ML BAG IV SCH (16:40)
--- NOTE | 2019-02-27 18:33 | Hospitalist Progress Note ---
Date of Service February 27, 2019 Assessment & Plan (1) Atrial fibrillation with RVR: New Onset Afib Present on admission with worsening SOB and fatigue Found to be on Afib at PCP office and sent to the hospital EKG on admission showed Afib with HR 145 Received IV cardizem and starting on cardizem drip Cardiology on board Continue cardizem drip for now and plan to discontinue if HR control Oral cardizem 120mg started Continue IV heparin drip Atenolol changed to metoprolol 50mg BID ECHO showed no wall motion abnormality with EF 55-60% If does not return to normal sinus, plan to anticoagulate for 30 days and then possible cardioversion at this time. Continue monitor closely in tele Hyperglycemia HBa1c 5.4 Monitor BS Stable HTN BP control Continue Metoprolol BID DVT px on heparin drip CODE status FULL CODE Disposition Continue monitor in tele Patient's requesting updates from providers. Mr. Sheldon Crowell, contact #[phone]. Subjective Pt was seen and examined Sitting in chair with no distress Pt said that she feels much better today Denies any chest pain, palpitation and SOB Physical Exam Physical Exam: General- No acute distress Head- atraumatic Eyes- PERRL, EOMI, ENT- oropharynx clear Neck- supple, no JVD Lungs- clear to auscultation Heart- irregular rhythm; no murmur Abdomen- normal bowel sounds, soft, nontender Extremities- no calf tenderness Neuro- alert, oriented x 3; PERRL, EOMI; no facial palsy; no dysarthria Skin- warm & dry Results & Data Vital Signs (Past 12 Hours) Vital Signs Temp Pulse Pulse Resp BP BP Pulse Ox 02/27/19 15:07 36.8 C 73 19 116/73 95 02/27/19 12:05 36.5 C 114 H 18 137/82 96 02/27/19 08:00 119 H 02/27/19 07:09 36.6 C 98 H 18 137/83 95
[2019-02-27] MEDS: dilTIAZem HCl 125 MG in DEXTROSE 5% 100 ML IV SCH ×2 (19:12→23:04)
[2019-02-27] MEDS: TRAVOPROST Z 0.004% OPH SOLN 2.5 ML BTL OPB SCH (20:26)
[2019-02-28 06:41] LABS: Basophils # (auto) 0.02 K/uL (0-0.2); Basophils % (auto) 0.3 %; Eosinophils # (auto) 0.16 K/uL (0-0.5); Eosinophils % (auto) 2.7 %; Hematocrit (blood only) 35.9 % (37-47); Immature Granulocytes # (auto) 0.01 K/uL (0.00-0.02); Immature Granulocytes % (auto) 0.2 %; Lymphocytes # (auto) 1.19 K/uL (1.2-3.4); Lymphocytes % (auto) 20.1 %; Mean Corpuscular Hemoglobin 32.1 pg (25-34); Mean Corpuscular Hgb Conc 33.4 g/dL (32-36); Mean Platelet Volume 11.7 fL (7.4-10.4); Monocytes # (auto) 0.33 K/uL (0.11-0.59); Monocytes % (auto) 5.6 %; Neutrophils % (auto) 71.1 %; Platelet Count 190 K/uL (130-400); RDW Coefficient of Variation 14.4 % (11.5-14.5); RDW Standard Deviation 50.1 fL (36.4-46.3); Red Blood Count 3.74 M/uL (4.2-5.4); White Blood Count 5.91 K/uL (4.8-10.8)
[2019-02-28 06:41] LABS: Partial Thromboplastin Ratio 2.4
[2019-02-28 06:52] LABS: Partial Thromboplastin Time 66.3 Seconds (21.0-31.0)
[2019-02-28 07:01] LABS: BUN Creatinine Ratio 20.6 (10-20); Calcium 8.7 mg/dl (8.5-10.1); Creatinine Clr Calc Pharmacy 60.2 ml/min; Est GFR (African American) 87.7; Est GFR (Non-African American) 75.7; Potassium 3.3 mmol/L (3.5-5.1)
[2019-02-28] MEDS: MULTIVITAMIN TAB PO SCH (08:38)
[2019-02-28] MEDS: dilTIAZem HCL 120 MG CAPCR PO SCH (08:38)
[2019-02-28] MEDS: METOPROLOL TARTRATE 25 MG TAB PO SCH ×2 (08:48→20:42)
[2019-02-28] MEDS ORDERED: MIDAZOLAM HCL 1 MG/ML 2ML VIAL ONE (09:41)
[2019-02-28] MEDS ORDERED: fentaNYL citrate 100 MCG/2 ML VIAL ONE (09:41)
--- NOTE | 2019-02-28 10:53 | Pre Anesthesia Assessment ---
Date of Service February 28, 2019 Pre Sedation Assessment Vital Signs Temp Pulse Pulse Resp BP Pulse Ox 02/28/19 10:50 100 H 20 112/82 99 02/28/19 10:45 116 H 20 112/82 99 02/28/19 10:40 104 H 20 125/80 99 02/28/19 07:15 123 H 02/28/19 06:57 36.5 C 133 H 18 113/77 93 02/28/19 02:43 36.5 C 95 H 18 133/82 95 02/27/19 23:14 36.6 C 114 H 18 109/67 94 02/27/19 19:04 36.3 C L 109 H 20 124/87 98 02/27/19 15:07 36.8 C 73 19 116/73 95 02/27/19 12:05 36.5 C 114 H 18 137/82 96 Pre-Sedation Airway Assessment Smoking Status: Never smoker Short, Thick Neck: No Thyromental Distance: > or= 3.5 Finger Breadths Oral Cavity: + WNL Mallampati Class: III ASA: ASA3 NPO Status Date of Last Intake of Fluids: 02/27/19 Date of Last Intake of Solid Food: 02/27/19 Notes The planned sedation has been discussed with the patient. Informed Consent was obtained. I have identified the patient, determined the appropriateness of sedation and have assessed the patient immediately prior to the procedure. All medicine(s) and interventions are by my order.
--- NOTE | 2019-02-28 10:53 | Operative Report ---
Post Operative Report Pre & Post Diagnosis Operation Date: 02/28/19 10:00 <No data on this case meets the specified criteria> I identified the patient and participated in the time-out.: Yes Procedure Operation Date: 02/28/19 10:00 <No data on this case meets the specified criteria> Surgeon Taras Ash, DO Credit Collections Clerk none Estimated Blood Loss 0 Findings Consistent with Post-Op Diagnosis Specimens none Description of Procedure informed consent obtained pt prepped adequate moderate sedation achieved with Versed 2mg and Fentanyl 50 mcg OBDULIO revealed significant thrombus formation in KARAN cardioversion aborted pt tolerated well recover per protocol plan: return to tele for medical therapy I attest to the content of the Intraoperative Record and any orders documented therein. Any exceptions are noted below.
--- NOTE | 2019-02-28 10:54 | Post Anesthesia Assessment ---
Date of Service February 28, 2019 Post Sedation Assessment Vital Signs Temp Pulse Pulse Resp BP Pulse Ox 02/28/19 10:50 100 H 20 112/82 99 02/28/19 10:45 116 H 20 112/82 99 02/28/19 10:40 104 H 20 125/80 99 02/28/19 07:15 123 H 02/28/19 06:57 36.5 C 133 H 18 113/77 93 02/28/19 02:43 36.5 C 95 H 18 133/82 95 02/27/19 23:14 36.6 C 114 H 18 109/67 94 02/27/19 19:04 36.3 C L 109 H 20 124/87 98 02/27/19 15:07 36.8 C 73 19 116/73 95 02/27/19 12:05 36.5 C 114 H 18 137/82 96 Discharge Sedation Level of Care: Fast Track Phase II Post Sedation Plan On clinical assessment, the patient appears to have tolerated the sedation without complications. Patient is recovering as anticipated. Patient will continue to be monitored by nursing and may be discharged when sedation discharge criteria are met per below protocol. Upon Completions of procedure up to 15 minutes continue every 5 minute vital signs and the P.A.R. score; then discharge to a Phase I or Fast Track to Phase II per the following guidelines: * Discharge Patient to appropriate Phase II area if PAR is 8 or greater or return to pre- procedure baseline. The post - procedure orders will be as directed. * If PAR score is less than 8 or not return to pre-procedure baseline then patient will follow Phase I monitoring till PAR is reached for Phase II. The Phase I may be done in procedure room or may call to secure a Phase I area. * If naloxone or flumazenil are used for reversal, hold in Phase I for continued monitoring from when last reversal dose was given for a minimum of 60 minutes or longer pending the nurse and/or physician discretion of patient condition before discharge to Phase II. Please call the Sedation Physician to re-evaluate and complete post-note for discharge to Phase II area. Do NOT discharge from procedure sedation or Phase 1 until post- sedation evaluation note is complete by procedure /sedation MD Sedation Discharge Instructions to be given to the patient at discharge to home.
[2019-02-28] MEDS ORDERED: dilTIAZem HCL 120 MG CAPCR PO STA (11:13)
[2019-02-28] MEDS: dilTIAZem HCl 125 MG in DEXTROSE 5% 100 ML IV SCH (11:24)
[2019-02-28] MEDS: APIXABAN 5 MG TABLET PO SCH ×2 (12:17→20:43)
--- NOTE | 2019-02-28 15:18 | Cardiology Progress Note ---
Date of Service February 28, 2019 Assessment & Plan (1) Atrial fibrillation with RVR: Remains asymptomatic Unfortunately rates remained uncontrolled overnight despite IV Cardizem drip, so conversation was had a great length and was decided to proceed with OBDULIO guided cardioversion. Unfortunately, significant thrombus was present in the left atrial appendage along with a significant amount of "smoke" in the left atrium. Cardioversion obviously not performed. At this point we will attempt rate control and her p.o. Cardizem will be increased and her p.o. metoprolol will be continued. She will be started on Eliquis for anticoagulation after we discussed the pros cons and alternatives of this medication. Tentative plan will be to rate control her overnight and hopefully discharge in the a.m. We will then follow-up with her as an outpatient in approximately 30 days and likely proceed with repeat OBDULIO and hopeful cardioversion at that time. Consideration for antiarrhythmic therapy will also be discussed at that follow- up. (2) Shortness of breath: Secondary to above (3) Hypertension: controlled Subjective Patient seen and examined prior to and after transesophageal echocardiogram. States that she continues to feel well and denies any chest pain, shortness of breath, palpitations, lightheadedness, dizziness or syncope. Tolerated transeso phageal echocardiogram well, however, left atrial thrombus was visualized and cardioversion was obviously aborted. Telemetry reviewed: Atrial fibrillation rates improved to the 90s to 100s, no other arrhythmias Review of Systems Review of Systems: All systems reviewed & are unremarkable except as noted in HPI & below Physical Exam Physical Exam: General: Awake, alert and oriented x 3. No acute distress. HEENT: Normocephalic, atraumatic. Pupils equal, round and reactive to light and accommodation. Extraocular muscles are intact. Anicteric sclera. Moist mucous membranes. Neck: No JVD. No bruit. Cardiovascular: irregularly irregular, unable to appreciate murmur, rub or gallop. Pulmonary: Clear to auscultation bilaterally. No rales, rhonchi, or wheezing. Abdomen: Bowel sounds x 4, soft. No rebound, guarding or tenderness. No organomegaly. Extremities: No clubbing, cyanosis or edema. +2 pedal pulses bilaterally. Skin: Warm and dry. Results & Data Vital Signs (Past 12 Hours) Vital Signs Temp Pulse Pulse Resp BP Pulse Ox 02/28/19 13:47 112 H 132/76 02/28/19 11:05 84 20 96/63 L 95 02/28/19 10:50 100 H 20 112/82 99 02/28/19 10:45 116 H 20 112/82 99 02/28/19 10:40 104 H 20 125/80 99 02/28/19 07:15 123 H 02/28/19 06:57 36.5 C 133 H 18 113/77 93
[2019-02-28] MEDS: TRAVOPROST Z 0.004% OPH SOLN 2.5 ML BTL OPB SCH (20:42)
--- NOTE | 2019-02-28 21:18 | Hospitalist Progress Note ---
Date of Service February 28, 2019 Assessment & Plan (1) Atrial fibrillation with RVR: Presented to ED with chest pressure and dyspnea. Found to be in new onset atrial fibrillation with rapid ventricular response. K, Mg, TSH normal at time of admission. Cardiology consulted. Received metoprolol and diltiazem infusion for rate control. Anticoagulated with IV heparin. Transthoracic echocardiogram demonstrated mild concentric LVH, normal left ventricular wall motion and function, moderately dilated left atrium (4.6 cm). OBDULIO demonstrated thrombus in the left atrial appendage. Cardioversion at this time, therefore, not recommended. Now receiving metoprolol tartrate 75 mg BID and diltiazem CD 240 mg daily for rate control. Transitioned from IV heparin to apixaban. (2) Hypertension: Patient was taking a atenolol at home. Now receiving metoprolol and diltiazem as discussed above. (3) DVT prophylaxis: Initially received IV heparin for atrial fibrillation. Now receiving apixaban. (4) Discharge planning issues: Anticipated discharge to home. Family Medicine follow-up with Inga Fontaine PA-C. Subjective Recheck for atrial fibrillation and other problems. Patient seen in their room around 1550. Remains in atrial fibrillation with tachycardia. Feels better. No chest pain, palpitations, dyspnea. Review of Systems: Constitutional- no fever. Cardiac- no chest pain. Pulmonary- no cough or SOB. GI- no nausea, vomiting, diarrhea, melena, hematochezia. - no urinary symptoms. Otherwise, as noted above. Physical Exam Constitutional: no acute distress Eyes: + anicteric sclerae Respiratory: no respiratory distress Auscultation: lungs clear to auscultation bilaterally Cardiovascular: Rate/Rhythm: + irregularly irregular Heart Sounds: no gallop and no cardiac rub Vessels: + JVD Extremities: no calf tenderness and no edema Gastrointestinal (Abdomen): normal bowel sounds, soft, nontender, no hepatosplenomegaly Skin: no rashes, warm and dry Psychiatric: Orientation: alert and oriented x 3 Results & Data Vital Signs (Past 12 Hours) Vital Signs Temp Pulse Pulse Resp BP Pulse Ox 02/28/19 19:02 36.6 C 119 H 19 136/87 97 02/28/19 15:13 36.5 C 96 H 19 113/74 97 02/28/19 15:00 99 H 02/28/19 13:47 112 H 132/76 02/28/19 11:05 84 20 96/63 L 95 02/28/19 10:50 100 H 20 112/82 99 02/28/19 10:45 116 H 20 112/82 99 02/28/19 10:40 104 H 20 125/80 99 Laboratory Results 02/28/19 06:14 02/28/19 06:12
[2019-03-01 06:50] LABS: BUN Creatinine Ratio 19.3 (10-20); Calcium 8.8 mg/dl (8.5-10.1); Creatinine Clr Calc Pharmacy 64.4 ml/min; Est GFR (African American) 95.2; Est GFR (Non-African American) 82.2; Potassium 3.5 mmol/L (3.5-5.1)
[2019-03-01] MEDS: METOPROLOL TARTRATE 25 MG TAB PO SCH (07:20)
[2019-03-01] MEDS: MULTIVITAMIN TAB PO SCH (08:50)
[2019-03-01] MEDS: APIXABAN 5 MG TABLET PO SCH (08:52)
[2019-03-01] MEDS ORDERED: dilTIAZem HCL 240 MG CAPCR PO SCH (09:00)
[2019-03-01] MEDS ORDERED: METOPROLOL TARTRATE 25 MG TAB PO STA (10:24)
--- NOTE | 2019-03-01 10:31 | Cardiology Progress Note ---
Date of Service March 01, 2019 Assessment & Plan (1) Atrial fibrillation with RVR: (2) Hypertension: The patient is anxious to go home I believe she may be discharged. I will increase her Lopressor to 100 mg twice daily. She should be discharged on Cardizem 240 mg daily and Eliquis as well. Arrangements have been made to have follow-up with Dr. Ash as an outpatient. Subjective The patient wants to go home. She feels well. I reviewed her telemetry and when she is resting her heart rates in the 90s but when she becomes active her heart rates are in the 1 teens to 120s. Review of Systems Review of Systems: All systems reviewed & are unremarkable except as noted in HPI & below Nothing additional to add. Physical Exam Physical Exam: General: no acute distress and stated age Head: normocephalic, no masses, lesions, tenderness or abnormalities Eyes: conjunctiva are pink and non-injected, sclera clear Neck: supple, no adenopathy, no bruits, normal jugular venous pulse, no hepatojugular reflux Chest: normal shape and normal respiratory effort Lungs: clear to auscultation and percussion Cardiac Exam: - irregular rate & rhythm, no murmurs gallops or rubs - normal S1, normal S2 Pulses: 2(+) throughout Abdomen: abdomen soft, non-tender, no abnormal masses and no hepatosplenomegaly Musculoskeletal: no gait disturbance, no joint inflammation, no deforming arthritis Extremities: no edema and no cyanosis Neuro: grossly normal exam Results & Data Vital Signs (Past 12 Hours) Vital Signs Temp Pulse Pulse Resp BP Pulse Ox 03/01/19 07:25 132 H 03/01/19 07:07 36.6 C 134 H 18 127/80 97 03/01/19 03:17 36.6 C 122 H 16 132/84 95 02/28/19 23:03 36.6 C 94 H 18 128/88 97 Laboratory Results Laboratory Results - last 24 hr 03/01/19 05:52 Sodium 140 Potassium 3.5 Chloride 108 H Carbon Dioxide 25 Anion Gap 7.0 BUN 14 Creatinine 0.71 Est Cr Clr Drug Dosing 64.4 Est GFR ( Amer) 95.2 Est GFR (Non-Af Amer) 82.2 BUN/Creatinine Ratio 19.3 Glucose 91 Calcium 8.8 Medications Administered Current Inpatient Medications Acetaminophen (Tylenol) 650 mg PO Q4H PRN PRN Reason: Pain or Fever Stop: 03/28/19 22:34 Apixaban (Eliquis) 5 mg PO BID [facility] Stop: 03/30/19 11:29 Last Admin: 03/01/19 08:52 Dose: 5 mg Documented by: Diltiazem HCl (Cardizem Cd) 240 mg PO QAM [facility] Stop: 03/31/19 08:59 Last Admin: 03/01/19 07:20 Dose: 240 mg Documented by: Promethazine HCl 12.5 mg/ (Sodium Chloride) 50.5 mls @ 202 mls/hr IV Q6H PRN PRN Reason: Nausea And Vomiting Stop: 03/28/19 22:34 Ioversol (Optiray 320 125ml) 120 ml IV ONCE PRN PRN Reason: Interaction Checking Stop: 03/02/19 21:18 Last Admin: 02/26/19 21:19 Dose: 120 ml Documented by: Loratadine (Claritin) 10 mg PO DAILY PRN PRN Reason: Allergy Symptoms Stop: 03/28/19 22:34 Metoprolol Tartrate (Lopressor) 100 mg PO BID [facility] Stop: 03/31/19 20:59 Multivitamins (Multivitamin Tab) 1 tab PO DAILY [facility] Stop: 03/29/19 08:59 Last Admin: 03/01/19 08:50 Dose: 1 tab Documented by: Tramadol HCl (Ultram) 25 - 50 mg PO Q4H PRN PRN Reason: Pain Stop: 03/28/19 22:34
--- NOTE | 2019-03-01 13:45 | Hospitalist Progress Note ---
Date of Service March 01, 2019 Assessment & Plan (1) Atrial fibrillation with RVR: Presented to ED with chest pressure and dyspnea. Found to be in new onset atrial fibrillation with rapid ventricular response. K, Mg, TSH normal at time of admission. Cardiology consulted. Received metoprolol and diltiazem infusion for rate control. Anticoagulated with IV heparin. Transthoracic echocardiogram demonstrated mild concentric LVH, normal left ventricular wall motion and function, moderately dilated left atrium (4.6 cm). OBDULIO demonstrated thrombus in the left atrial appendage. Cardioversion at this time, therefore, not recommended. Now receiving metoprolol tartrate 75 mg BID and diltiazem CD 240 mg daily for rate control. Transitioned from IV heparin to apixaban. (2) Hypertension: Patient was taking a atenolol at home. Now receiving metoprolol and diltiazem as discussed above. (3) DVT prophylaxis: Initially received IV heparin for atrial fibrillation. Now receiving apixaban. (4) Discharge planning issues: Discharge to home. Family Medicine follow-up with Inga Fontaine PA-C. Cardiology follow-up with Dr. Ash or associates. Subjective Feels great. No CP, SOB, palpitations. Ambulating. Still in AF with rate in 90's at rest and 110-120 with activity. Would like to go home. Physical Exam Constitutional: no acute distress Eyes: + anicteric sclerae Respiratory: no respiratory distress Auscultation: lungs clear to auscultation bilaterally Cardiovascular: Rate/Rhythm: + irregularly irregular Heart Sounds: no gallop and no cardiac rub Vessels: + JVD Extremities: no calf tenderness and no edema Gastrointestinal (Abdomen): normal bowel sounds, soft, nontender, no hepatosplenomegaly Skin: no rashes, warm and dry Psychiatric: Orientation: alert and oriented x 3 Results & Data Vital Signs (Past 12 Hours) Vital Signs Temp Pulse Pulse Resp BP BP Pulse Ox 03/01/19 13:17 36.8 C 81 16 137/83 126/87 99 03/01/19 11:40 36.8 C 81 16 126/87 99 03/01/19 07:25 132 H 03/01/19 07:07 36.6 C 134 H 18 127/80 97 03/01/19 03:17 36.6 C 122 H 16 132/84 95
[2019-03-01] MEDS ORDERED: METOPROLOL TARTRATE 100 MG TAB PO SCH (21:00)
--- NOTE | 2019-03-03 07:47 | Discharge Summary ---
Date of Service Date of Admission: 02/26/19 Date of Discharge: 03/01/19 Admission HPI Per Admitting Provider History obtained from patient, family, and records. Medical history significant for hypertension, glaucoma, history Lyme disease status post Rx. Last week patient noted nasal congestion symptoms, self-limiting. No OTC decongestant intake. Few days history of chest pressure, shortness of breath especially on exertion. No cough, no palpitations. Legs a little more swollen than usual. Fatigue symptoms noted as well. Recent travel to [place] for a family vacation a few weeks ago. Patient compliant with home medications. Does not check blood pressure at home. Patient seen at PCPs office. EKG showed A. fib. Patient sent to the ER for evaluation. Principal Diagnosis atrial fibrillation with rapid ventricular response Discharge Data Allergies Allergy/AdvReac Type Severity Reaction Status Date / Time latex Allergy Unknown HIVES Verified 02/26/19 19:52 No Known Drug Allergies Allergy Unknown . Verified 12/28/15 06:24 Consultations 02/26/19 19:41 ED Decision to Admit Stat 02/26/19 22:35 Consult Cardiology Routine Procedures Performed Operation Date: 02/28/19 10:00 Actual Procedures p Transesophageal Echo - Taras Ash DO Ordered Studies 02/26/19 21:00 CT angio chest PE protocol Urgent Hospital Course (1) Atrial fibrillation with RVR: Presented to ED with chest pressure and dyspnea. Found to be in new onset atrial fibrillation with rapid ventricular response. K, Mg, TSH normal at time of admission. Cardiology consulted. Received metoprolol and diltiazem infusion for rate control. Anticoagulated with IV heparin. Transthoracic echocardiogram demonstrated mild concentric LVH, normal left ventricular wall motion and function, moderately dilated left atrium (4.6 cm). OBDULIO demonstrated thrombus in the left atrial appendage. Cardioversion at this time, therefore, not recommended. Now receiving metoprolol tartrate 75 mg BID and diltiazem CD 240 mg daily for rate control. Transitioned from IV heparin to apixaban. (2) Hypertension: Patient was taking a atenolol at home. Now receiving metoprolol and diltiazem as discussed above. (3) DVT prophylaxis: Initially received IV heparin for atrial fibrillation. Now receiving apixaban. (4) Discharge planning issues: Discharge to home. Family Medicine follow-up with Inga Fontaine PA-C. Cardiology follow-up with Dr. Ash or associates. Total Time Total Time Spent Total Time Spent (In Minutes): 35 Discharge Plan Discharge Items Patient Disposition: Home - Self-Care Reason For Visit: atrial fibrillation Discharge Diagnosis: atrial fibrillation Condition on Discharge: Good Activity: As commented below Activity Comment: gradually increase activity as tolerated Non-emergency contact: Primary Care Provider, Hospitalist and Supervisor D[place] Call non-emergency contact if: you have any medication questions and your symptoms worsen Follow-up/Referrals: Inga Fontaine PA-C [Primary Care Provider] - (03/07/2019 8:00 AM Inga Fontaine PA-C) Diet: Heart Healthy Addtl Attending Provider Instructions: MEDICATION CHANGES: Take apixaban (Eliquis) to help prevent strokes. Take metoprolol (Lopressor) and diltiazem (Cardizem) to control heart rate. SUMMARY OF TEST RESULTS: Electrocardiogram (EKG) showed atrial fibrillation. Echocardiogram showed blood clot in heart chamber. RECOMMENDATIONS FOR FOLLOW-UP: Cardiology follow-up with Dr. Ash. OTHER INSTRUCTIONS: Seek medical attention if you have: * temperature above 101 * chest pain or trouble breathing * abdominal pain, nausea, vomiting * diarrhea, dark stools or bloody stools * any unanswered questions or concerns Call 911 if symptoms are severe. Please take good care of yourself. Call if you have any questions or problems. You can reach a [facility] hospitalist on duty at [facility] 24 hours a day by calling [phone]. My cell # is [phone]. Pending Studies at Discharge: No Stand-Alone Forms: My [facility], Smoking Cessation Medications and DC Order Prescriptions: New Eliquis 5 mg Tablet 5 mg PO BID Qty: 60 RF: 5 diltiazem HCl 240 mg Capsule,Extended Release 24hr 240 mg PO QAM Qty: 30 RF: 5 metoprolol tartrate 100 mg Tablet 100 mg PO BID Qty: 60 RF: 5 Continued hydrochlorothiazide 25 mg tablet 25 mg PO DAILY RF: 0 Travatan Z 0.004 % drops 1 drp OPB HS RF: 0 aspirin [Aspir-81] 81 mg Tablet,Delayed Release (Dr/Ec) 81 mg PO DAILY RF: 0 Ocuvite Adult 50 Plus 250-5-1 mg Capsule 1 cap PO DAILY RF: 0 multivitamin [Multiple Vitamins] Tablet 1 tab PO DAILY RF: 0 loratadine 10 mg Tablet 10 mg PO DAILY PRN (Reason: Allergy Symptoms) RF: 0 Discontinued atenolol 25 mg tablet 25 mg PO BID RF: 0 Discharge Orders: Discharge Order (Routine); Ordered 03/01/19 Ordered By: James Razo Admission Data Admit Date/Time: 02/26/19 21:06 Attending Provider: James Razo Admit Provider: Hans Vera Primary Care Provider: Inga Fontaine Other Providers: Hans Vera ; Michael Prince Wilkerson Other Interventions: Discharge Summary Assessment (RN) Last Done: 03/01/19 13:17 DC Date/Time DO NOT enter until pt leaves facility: 03/01/19 14:08
== END 2019-03-01 14:08 | disposition home or self-care (01) | DRG 310 ==
LOC: ED 18:01 → 2S 21:06 → SUATTDRO 21:06 → 2S 22:02
PROC: CLS.TEE (2019-02-28 10:00)

== ENCOUNTER 2019-04-08 05:38 | Inpatient (IN) ==
--- NOTE | 2019-04-03 08:31 | Anesthesiology Consultation ---
Date of Service April 03, 2019 Assessment & Plan (1) Encounter for pre-operative examination: Chart Review Chart Review: Acceptable Risk for Surgery and Patient NOT seen in Pre Admission Testing Consults Requested none History Surgery Operation Date: 04/08/19 07:30 Proposed Procedures p Transesophageal Echo w/Anesthesia - Michael Prince DO s Cardioversion Artificial Foliage Arranger w/Anesthesia - Michael Prince DO Height/Weight Height: 5 ft 1 in Weight: 81.647 kg Allergies Allergy/AdvReac Type Severity Reaction Status Date / Time latex Allergy Unknown HIVES Verified 04/01/19 09:13 No Known Drug Allergies Allergy Unknown . Verified 04/01/19 09:13 Medications Home Medications Medication Instructions Recorded Confirmed Last Taken Ocuvite Adult 50 Plus 1 cap PO DAILY 02/26/19 04/01/19 Unknown Travatan Z 1 drp OPB HS 02/26/19 04/01/19 Unknown aspirin [Aspir-81] 81 mg PO DAILY 02/26/19 04/01/19 Unknown hydrochlorothiazide 25 mg PO DAILY 02/26/19 04/01/19 Unknown loratadine 10 mg PO DAILY PRN 02/26/19 04/01/19 Unknown multivitamin [Multiple Vitamins] 1 tab PO DAILY 02/26/19 04/01/19 Unknown apixaban [Eliquis] 5 mg PO BID #60 tab 03/01/19 04/01/19 Unknown diltiazem HCl 240 mg PO QAM #30 cap 03/01/19 04/01/19 Unknown metoprolol tartrate 100 mg PO BID #60 tab 03/01/19 04/01/19 Unknown Past Medical History Medical History Atrial fibrillation with RVR (Acute) dx 02/2019. follows w/ Dr. Ash. On Eliquis. Borderline hyperlipidemia Diverticular disease Glaucoma Hypertension (Acute) Left atrial thrombus On anticoagulant therapy Past Family History Family History Other No family history of adverse response to anesthesia Past Surgical History Surgical History History of bilateral breast reduction surgery History of colonoscopy History of tooth extraction History of tubal ligation Social History Smoking Status: Never smoker Do You Dip or Chew Tobacco: No Hx Alcohol Use: Yes alcohol intake frequency: holidays/special occasions only Hx Substance Use: No substance use type: does not use Testing Laboratory Results Laboratory Tests 02/26/19 02/28/19 03/27/19 18:30 06:12 20:35 WBC 7.43 Hgb 12.4 Plt Count 241 APTT 66.3 H* Sodium Potassium Chloride Carbon Dioxide BUN Creatinine Glucose TSH 5.540 H 03/27/19 20:35 WBC Hgb Plt Count APTT Sodium 138 Potassium 3.2 L Chloride 102 Carbon Dioxide 29 BUN 15 Creatinine 0.86 Glucose 112 H TSH Electrocardiogram Date: 03/27/19 Atrial fibrillation with rapid ventricular response, rate 117 bpm Low voltage QRS Nonspecific ST and T wave abnormality Abnormal ECG When compared with ECG of 27-FEB-2019 07:12, Nonspecific T wave abnormality now evident in Anterolateral leads Confirmed by Jermaine Maier ([id number]) on 03/28/2019 2:48:36 PM Chest X-Ray Date: 03/27/19 IMPRESSION: Cardiomegaly. No other convincing evidence of acute cardiopulmonary disease. Echocardiogram Date: 02/27/19 EF: 55-60% LV Function: normal RWMA: + none left atrial enlargement mild LVH mild AV sclerosis
--- NOTE | 2019-04-07 18:44 | History & Physical Report ---
Date of Service April 07, 2019 Assessment & Plan (1) Atrial fibrillation with RVR: The patient returns for repeat transesophageal echocardiogram for further risk stratification prior to direct current cardioversion having been found to have a left atrial /a left atrial appendage thrombus on transesophageal echocardiogram 02/28/2019. Informed consent was obtained for transesophageal echocardiogram and cardioversion. The patient elects to proceed. The patient had held her diltiazem as well as metoprolol this morning in advance of the procedure. She took her Eliquis prior to leaving for the hospital with a sip of water. Further considerations were made regarding admission to the hospital for antirhythmic therapy depending upon the outcome of the OBDULIO and cardioversion. History of Present Illness Primary Care Provider: Inga Fontaine PA-C Tere Crowell is a 79-year-old female whose recent cardiac history dates back to February, when she was seen in inpatient cardiology consultation by Dr. Ash of our practice for the diagnosis of symptomatic atrial fibrillation with rapid ventricular response. She had undergone a transesophageal echocardiogram during that hospital stay on 02/28/2019 with findings of significant spontaneous echo contrast in the left atrium and left atrial appendage, and echodensity noted in the left atrium and left atrial appendage co nsistent with left atrial thrombus. Direct current cardioversion was therefore not performed, and the patient has been anticoagulated with Eliquis for 5 weeks in the interim. She had been seen in the emergency room on 03/27/2019 for mild bruising of her leg, but her anticoagulation was not interrupted. At the time for most recent outpatient cardiology visit with Dr. Ash on 03/25/2019, ongoing atrial fibrillation with rapid ventricular response was noted. She notes that she is easily fatigued with exertion with exertional shortness of breath. Past Medical History: 1. Persistent atrial fibrillation 2. Left atrial appendage thrombus, transesophageal echocardiogram, 02/28/2019 3. Hypertension Allergies Allergy/AdvReac Type Severity Reaction Status Date / Time latex Allergy Unknown HIVES Verified 04/01/19 09:13 No Known Drug Allergies Allergy Unknown . Verified 04/01/19 09:13 Home Medications Home Medications Medication Instructions Recorded Confirmed Type Ocuvite Adult 50 Plus 1 cap PO DAILY 02/26/19 04/01/19 History Travatan Z 1 drp OPB HS 02/26/19 04/01/19 History aspirin [Aspir-81] 81 mg PO DAILY 02/26/19 04/01/19 History hydrochlorothiazide 25 mg PO DAILY 02/26/19 04/01/19 History loratadine 10 mg PO DAILY PRN 02/26/19 04/01/19 History multivitamin [Multiple Vitamins] 1 tab PO DAILY 02/26/19 04/01/19 History apixaban [Eliquis] 5 mg PO BID #60 tab 03/01/19 04/01/19 Rx diltiazem HCl 240 mg PO QAM #30 cap 03/01/19 04/01/19 Rx metoprolol tartrate 100 mg PO BID #60 tab 03/01/19 04/01/19 Rx Past Med/Surg History Medical History Atrial fibrillation with RVR (Acute) dx 02/2019. follows w/ Dr. Ash. On Eliquis. Borderline hyperlipidemia Diverticular disease Glaucoma Hypertension (Acute) Left atrial thrombus On anticoagulant therapy Surgical History History of bilateral breast reduction surgery History of colonoscopy History of tooth extraction History of tubal ligation Family History Other No family history of adverse response to anesthesia Social History Preferred Language: Vietnamese Communication Ability: Effective Asbestos Abatement Worker Required: No Beliefs That Will Affect Care: None Current Living Situation: Spouse Other Information That Helps Us Care for You: No Feels Safe at Home: Yes Safety Concerns: Feels Safe At This Time Smoking Status: Never smoker Do You Dip or Chew Tobacco: No ; Second Hand Exposure: No ; Hx Alcohol Use: No Hx Substance Use: No Review of Systems Review of Systems: All systems reviewed & are unremarkable except as noted in HPI & below Physical Exam Physical Exam: Temp Pulse Resp BP Pulse Ox 36.5 C 139 H 18 139/99 100 04/08/19 06:49 04/08/19 06:49 04/08/19 06:49 04/08/19 06:49 04/08/19 06:49 Constitutional: WD/WN, vitals as above Respiratory: normal respiratory effort, lungs clear to auscultation Cardiovascular: Rate/Rhythm: regular rhythm and + tachycardic Heart Sounds: no murmur Vessels: no JVD Extremities: no edema Gastrointestinal (Abdomen): normal bowel sounds, soft, nontender, no hepatosplenomegaly Neurologic: PERRL, EOMI, accommodation nl, no face palsy, no dysarthria Results & Data Laboratory Results chemistry panel performed 04/01/2019: Sodium 140, potassium 3.8, chloride 98, CO2 29, BUN 13, creatinine 0.8, calculated GFR greater than 60 mL/minute per meter square, calcium 9.7, glucose 156
--- NOTE | 2019-04-08 07:31 | History & Physical Bridge Note ---
Date of Service April 08, 2019 History & Physical Bridge Note I have examined the patient, reviewed the History & Physical and in the interval since the performance of the History & Physical I have noted the following changes of clinical significance: no changes noted
[2019-04-08] MEDS ORDERED: ePHEDrine sulfate 50 MG/ML AMP IV PRN (07:40)
[2019-04-08] MEDS ORDERED: ATROPINE SULFATE 0.1 MG/ML 10ML SYR IV PRN (07:40)
--- NOTE | 2019-04-08 07:57 | Cardioversion ---
Date of Service April 08, 2019 Electrical Cardioversion Rpt Electrical Cardioversion Report Author: Michael Prince DO Cardiology Brief Post Op Date of Surgery April 08, 2019 Pre & Post Diagnosis Preprocedure diagnosis: symptomatic atrial fibrillation with rapid ventricular response, history of left atrial , left atrial appendage thrombus Post procedure diagnosis: No left atrial or left atrial appendage thrombus, successful conversion to sinus rhythm. Operation Date: 04/08/19 07:30 Procedure After informed consent was obtained and a time out was performed, at focussed OBDULIO was performed for risk stratification. Severe biatrial enlargement was present. Spontaneous echo contrast was observed without thrombus. The previously visualized thrombus had resolved. Transient hypoxia was noted, which resolved with airway support, and therefore a very focussed limited OBDULIO was performed to limit the duration of sedation. Patient then underwent synchronized direct current cardioversion receiving 250 J of biphasic energy x 1 dose with successful conversion to sinus rhythm. Patient received a total of 70 mg of propofol as administered by the anesthesia team. Otolaryngology Rep Michael Prince DO Radiologist Chief Of Breast Imaging Tiki Elliott, RCS Estimated Blood Loss 0 Findings Consistent with Post-Op Diagnosis Anesthesia Type MAC
[2019-04-08] MEDS ORDERED: AMIODARONE IV BOLUS / DRIP IV STA (07:58)
--- NOTE | 2019-04-08 08:01 | Anesthesiology Progress Note ---
Date of Service April 08, 2019 Anesthesia Post Procedure Vital Signs Vital Signs: Temp Pulse Resp BP Pulse Ox 04/08/19 07:50 90 16 132/72 100 04/08/19 06:49 36.5 C 139 H 18 139/99 100 Transfer of Care Handoff Completed per policy Notes Mental Status: alert / awake / arousable Patient Amnestic to Procedure: Yes Nausea / Vomiting: adequately controlled Pain: adequately controlled Airway Patency, RR, SpO2: stable & adequate BP & HR: stable & adequate Hydration State: stable & adequate Anesthetic Complications: no major complications apparent
[2019-04-08] MEDS ORDERED: AMIODARONE 150MG / 100ML D5W (CATH LAB USE ONLY) ONE (08:06)
[2019-04-08] MEDS ORDERED: AMIODARONE 360MG / 200ML D5W (CATH LAB USE ONLY) ONE (08:07)
[2019-04-08] MEDS ORDERED: AMIODARONE / D5W 150 MG/100 ML BAG IV ONE (08:15)
[2019-04-08] MEDS: AMIODARONE / D5W 360 MG/200 ML BAG IV SCH ×3 (08:35→13:36)
[2019-04-08] MEDS ORDERED: LIDOCAINE HCL 2% 2 ML VIAL/AMP(20MG/ML) INFIL ONE (08:50)
[2019-04-08] MEDS ORDERED: PROPOFOL IV EMULSION 10 MG/ML 20 ML VIAL IV ONE (08:50)
[2019-04-08] MEDS ORDERED: ACETAMINOPHEN 325 MG TAB PO PRN (08:58)
[2019-04-08] MEDS ORDERED: hydroCHLOROthiazide 25 MG TAB PO SCH (09:00)
[2019-04-08] MEDS ORDERED: MULTIVITAMIN TAB PO SCH (09:00)
[2019-04-08] MEDS ORDERED: LORATADINE 10 MG TAB PO PRN (09:00)
--- NOTE | 2019-04-08 09:06 | Cardiology Progress Note ---
Date of Service April 08, 2019 Assessment & Plan (1) Atrial fibrillation with RVR: (2) Hypertension: Patient with findings on focused limited transesophageal echocardiogram of severe biatrial enlargement. The initial plan was to have the patient remain in the hospital post cardioversion for initiation of sotalol. Due to the findings of severe biatrial enlargement, as well as her significant symptoms when she is in atrial fibrillation, with ongoing rapid ventricular rates despite high doses of AV lorri blockers including 360 mg of diltiazem daily and 100 mg of metoprolol tartrate twice daily, I recommend proceeding with amiodarone which I feel will be more effective from a rhythm control standpoint. A baseline chest x-ray, liver function panel, and TSH will be obtained. The benefits and risks of amiodarone therapy have been explained to the patient and . Subjective Chief complaint: Follow-up symptomatic atrial fibrillation Subjective: Patient reassessed post transesophageal echocardiogram guided direct current cardioversion. She was comfortable. Conversant, no focal neurologic deficits were noted. EKG confirmed the presence of post procedure sinus rhythm, the corrected QT interval was normal. The patient had most recently taken her Eliquis 5 mg this morning at approximately 4:50 AM. Physical Exam Physical Exam: Temp Pulse Resp BP Pulse Ox 36.5 C 86 16 136/74 100 04/08/19 06:49 04/08/19 08:05 04/08/19 08:05 04/08/19 08:05 04/08/19 08:05 Respiratory: normal respiratory effort, lungs clear to auscultation Cardiovascular: RRR, no murmur, no edema Results & Data Vital Signs (Past 12 Hours) Vital Signs Temp Pulse Resp BP Pulse Ox 04/08/19 08:05 86 16 136/74 100 04/08/19 07:50 90 16 132/72 100 04/08/19 06:49 36.5 C 139 H 18 139/99 100 (1) Hypertension Hypertension type: unspecified Qualified Code(s): I10 - Essential (primary) hypertension
[2019-04-08 09:42] LABS: Basophils # (auto) 0.02 K/uL (0-0.2); Basophils % (auto) 0.3 %; Eosinophils # (auto) 0.12 K/uL (0-0.5); Eosinophils % (auto) 1.9 %; Hematocrit (blood only) 36.3 % (37-47); Hemoglobin 11.8 g/dL (12.0-16.0); Immature Granulocytes # (auto) 0.01 K/uL (0.00-0.02); Immature Granulocytes % (auto) 0.2 %; Lymphocytes # (auto) 1.16 K/uL (1.2-3.4); Lymphocytes % (auto) 18.1 %; Mean Corpuscular Hemoglobin 31.8 pg (25-34); Mean Corpuscular Volume 97.8 fL (80-100); Mean Platelet Volume 10.8 fL (7.4-10.4); Monocytes # (auto) 0.39 K/uL (0.11-0.59); Monocytes % (auto) 6.1 %; Neutrophils % (auto) 73.4 %; Platelet Count 246 K/uL (130-400); RDW Standard Deviation 50.7 fL (36.4-46.3); Red Blood Count 3.71 M/uL (4.2-5.4)
[2019-04-08 09:50] LABS: Albumin Level 3.6 gm/dl (3.4-5.0); BUN Creatinine Ratio 17.7 (10-20); Calcium 8.9 mg/dl (8.5-10.1); Creatinine Clr Calc Pharmacy 53.8 ml/min; Est GFR (African American) 75.5; Est GFR (Non-African American) 65.2; Potassium 3.3 mmol/L (3.5-5.1)
[2019-04-08] MEDS: CEROVITE ADV FORMULA TAB PO SCH (09:51)
[2019-04-08] MEDS: METOPROLOL TARTRATE 50 MG TAB PO SCH ×2 (09:52→22:11)
[2019-04-08] MEDS: ASPIRIN 81 MG ECTAB PO SCH (09:52)
[2019-04-08 09:54] LABS: Mean Corpuscular Hgb Conc 32.5 g/dL (32-36)
[2019-04-08 10:00] LABS: Albumin Globulin Ratio 0.9 (0.9-2); Bilirubin,Total 0.9 mg/dl (0.2-1); Thyroid Stimulating Hormone 3.51 uIu/ml (0.300-4.500); Total Protein 7.6 gm/dl (6.4-8.2)
--- NOTE | 2019-04-08 10:37 | XRay Report ---
TWO VIEW CHEST CLINICAL HISTORY: Atrial fibrillation. FINDINGS: PA and lateral chest radiographs are compared to study dated 03/27/2019 and correlated with chest CT dated 02/26/2019. The PA view is degraded by patient rotation. The heart is enlarged noting atherosclerotic calcification of the thoracic aorta. There is mild pulmonary vascular congestion. Sc arring/atelectasis is seen at the lung bases. There are trace pleural effusions, best seen on the lat eral view. There is no pneumothorax. The skeletal structures are osteopenic. The bony thorax appears intact. Degenerative change and hyperkyphosis are noted in the thoracic spine. IMPRESSION: 1. Cardiomegaly with evidence of mild congestive failure. 2. Trace pleural effusions. ACT 112: Negative or not required by law. Electronically signed by: Shon Nava M.D. 04/08/2019 10:36 AM
[2019-04-08] MEDS ORDERED: POTASSIUM CHLORIDE 20 MEQ TABCR PO STA (11:17)
[2019-04-08] MEDS: SPIRONOLACTONE 25 MG TAB PO SCH (12:05)
[2019-04-08] MEDS: AMIODARONE 200 MG TAB PO SCH ×2 (12:06→19:45)
[2019-04-08] MEDS: APIXABAN 5 MG TABLET PO SCH ×2 (19:44→21:42)
[2019-04-08] MEDS: TRAVOPROST Z 0.004% OPH SOLN 2.5 ML BTL OPB SCH (22:12)
[2019-04-09] MEDS: AMIODARONE / D5W 360 MG/200 ML BAG IV SCH (00:24)
[2019-04-09 07:09] LABS: Basophils # (auto) 0.01 K/uL (0-0.2); Basophils % (auto) 0.1 %; Eosinophils % (auto) 1.1 %; Hematocrit (blood only) 35.9 % (37-47); Hemoglobin 11.7 g/dL (12.0-16.0); Immature Granulocytes # (auto) 0.02 K/uL (0.00-0.02); Immature Granulocytes % (auto) 0.2 %; Mean Corpuscular Hemoglobin 31.9 pg (25-34); Mean Corpuscular Hgb Conc 32.6 g/dL (32-36); Mean Corpuscular Volume 97.8 fL (80-100); Mean Platelet Volume 10.6 fL (7.4-10.4); Monocytes # (auto) 0.54 K/uL (0.11-0.59); Monocytes % (auto) 6.1 %; Neutrophils # (auto) 7.42 K/uL (1.4-6.5); Neutrophils % (auto) 84.5 %; Platelet Count 230 K/uL (130-400); RDW Coefficient of Variation 14.3 % (11.5-14.5); RDW Standard Deviation 51.3 fL (36.4-46.3); Red Blood Count 3.67 M/uL (4.2-5.4); White Blood Count 8.79 K/uL (4.8-10.8)
[2019-04-09] MEDS: METOPROLOL TARTRATE 50 MG TAB PO SCH ×2 (07:14→21:33)
[2019-04-09] MEDS: SPIRONOLACTONE 25 MG TAB PO SCH (07:15)
[2019-04-09] MEDS: CEROVITE ADV FORMULA TAB PO SCH (07:15)
[2019-04-09] MEDS: APIXABAN 5 MG TABLET PO SCH ×2 (07:16→21:34)
[2019-04-09] MEDS: FUROSEMIDE 20 MG TAB PO SCH (07:16)
[2019-04-09] MEDS: AMIODARONE 200 MG TAB PO SCH ×3 (07:17→16:39)
[2019-04-09] MEDS: ASPIRIN 81 MG ECTAB PO SCH (07:18)
[2019-04-09 07:32] LABS: BUN Creatinine Ratio 17.7 (10-20); Calcium 9.1 mg/dl (8.5-10.1); Creatinine Clr Calc Pharmacy 57.6 ml/min; Est GFR (African American) 82.4; Est GFR (Non-African American) 71.1; Magnesium 1.7 mg/dl (1.8-2.4); Potassium 3.5 mmol/L (3.5-5.1)
--- NOTE | 2019-04-09 09:20 | Cardiology Progress Note ---
Date of Service April 09, 2019 Assessment & Plan (1) Atrial fibrillation with RVR: (2) Encounter for monitoring anti-arrhythmic therapy: The patient is maintaining sinus rhythm but did have a brief run of PAF in the middle the night. I still believe that we can discontinue the IV amiodaro ne. She is already been started on 200 mg 3 times daily of oral amiodarone while on the infusion. I will increase the oral dose to 400 mg 3 times daily while loading and after we DC the IV. Otherwise the patient is stable. Subjective The patient had an uneventful night. She is maintaining sinus rhythm but did have short run of atrial fibrillation last night. Tolerating amiodarone. Review of Systems Review of Systems: All systems reviewed & are unremarkable except as noted in HPI & below Nothing additional to add. Physical Exam Physical Exam: General: no acute distress and stated age Head: normocephalic, no masses, lesions, tenderness or abnormalities Eyes: conjunctiva are pink and non-injected, sclera clear Neck: supple, no adenopathy, no bruits, normal jugular venous pulse, no hepatojugular reflux Chest: normal shape and normal respiratory effort Lungs: clear to auscultation and percussion Cardiac Exam: - regular rate & rhythm, no murmurs gallops or rubs - normal S1, normal S2 Pulses: 2(+) throughout Abdomen: abdomen soft, non-tender, no abnormal masses and no hepatosplenomegaly Musculoskeletal: no gait disturbance, no joint inflammation, no deforming arthritis Extremities: no edema and no cyanosis Neuro: grossly normal exam Results & Data Vital Signs (Past 12 Hours) Vital Signs Temp Pulse Pulse Pulse Resp BP BP 04/09/19 08:34 82 04/09/19 07:08 36.6 C 87 19 154/87 H 04/09/19 05:13 84 04/09/19 04:30 36.4 C L 91 H 19 168/91 H 04/09/19 02:27 82 04/08/19 23:30 36.6 C 69 18 159/89 H 04/08/19 23:06 70 04/08/19 22:22 82 Pulse Ox Pulse Ox 04/09/19 08:34 04/09/19 07:08 97 04/09/19 05:13 99 04/09/19 04:30 91 04/09/19 02:27 89 L 04/08/19 23:30 96 04/08/19 23:06 94 04/08/19 22:22 95 Laboratory Results Laboratory Results - last 24 hr 04/08/19 04/08/19 04/09/19 09:20 09:20 06:32 WBC 6.40 RBC 3.71 L Hgb 11.8 L Hct 36.3 L MCV 97.8 MCH 31.8 MCHC 32.5 RDW Std Deviation 50.7 H RDW Coeff of Harsha 14.0 Plt Count 246 MPV 10.8 H Immature Gran % (Auto) 0.2 Neut % (Auto) 73.4 Lymph % (Auto) 18.1 [place] % (Auto) 6.1 Eos % (Auto) 1.9 Baso % (Auto) 0.3 Immature Gran # (Auto) 0.01 Neut # (Auto) 4.70 Lymph # (Auto) 1.16 L [place] # (Auto) 0.39 Eos # (Auto) 0.12 Baso # (Auto) 0.02 Sodium 139 137 Potassium 3.3 L 3.5 Chloride 105 104 Carbon Dioxide 29 27 Anion Gap 5.0 6.0 BUN 15 14 Creatinine 0.86 0.80 Est Cr Clr Drug Dosing 53.8 57.6 Est GFR ( Amer) 75.5 82.4 Est GFR (Non-Af Amer) 65.2 71.1 BUN/Creatinine Ratio 17.7 17.7 Glucose 100 H 98 Calcium 8.9 9.1 Magnesium 1.7 L Total Bilirubin 0.9 AST 30 ALT 32 Alkaline Phosphatase 92 Total Protein 7.6 Albumin 3.6 Globulin 4.0 Albumin/Globulin Ratio 0.9 TSH 3.510 04/09/19 06:32 WBC 8.79 RBC 3.67 L Hgb 11.7 L Hct 35.9 L MCV 97.8 MCH 31.9 MCHC 32.6 RDW Std Deviation 51.3 H RDW Coeff of Harsha 14.3 Plt Count 230 MPV 10.6 H Immature Gran % (Auto) 0.2 Neut % (Auto) 84.5 Lymph % (Auto) 8.0 [place] % (Auto) 6.1 Eos % (Auto) 1.1 Baso % (Auto) 0.1 Immature Gran # (Auto) 0.02 Neut # (Auto) 7.42 H Lymph # (Auto) 0.70 L [place] # (Auto) 0.54 Eos # (Auto) 0.10 Baso # (Auto) 0.01 Sodium Potassium Chloride Carbon Dioxide Anion Gap BUN Creatinine Est Cr Clr Drug Dosing Est GFR ( Amer) Est GFR (Non-Af Amer) BUN/Creatinine Ratio Glucose Calcium Magnesium Total Bilirubin AST ALT Alkaline Phosphatase Total Protein Albumin Globulin Albumin/Globulin Ratio TSH Medications Administered Current Inpatient Medications Acetaminophen (Tylenol) 650 mg PO Q4H PRN PRN Reason: Pain or Fever Stop: 05/08/19 08:57 Amiodarone HCl (Cordarone) 400 mg PO TIDM [facility] Stop: 05/09/19 11:59 Apixaban (Eliquis) 5 mg PO BID [facility] Stop: 05/08/19 17:59 Last Admin: 04/09/19 07:16 Dose: 5 mg Documented by: Aspirin (Ecotrin Ectab) 81 mg PO DAILY [facility] Stop: 05/08/19 08:59 Last Admin: 04/09/19 07:18 Dose: 81 mg Documented by: Furosemide (Lasix) 20 mg PO QAM [facility] Stop: 05/09/19 08:59 Last Admin: 04/09/19 07:16 Dose: 20 mg Documented by: Loratadine (Claritin) 10 mg PO DAILY PRN PRN Reason: Allergy Symptoms Stop: 05/08/19 08:59 Metoprolol Tartrate (Lopressor) 50 mg PO BID [facility] Stop: 05/08/19 09:14 Last Admin: 04/09/19 07:14 Dose: 50 mg Documented by: Multivitamins/Minerals (Multivitamin W/ Minerals Tab) 1 tab PO DAILY [facility] Stop: 05/08/19 08:59 Last Admin: 04/09/19 07:15 Dose: 1 tab Documented by: Spironolactone (Aldactone) 25 mg PO QAM [facility] Stop: 05/08/19 11:29 Last Admin: 04/09/19 07:15 Dose: 25 mg Documented by:
[2019-04-09] MEDS ORDERED: POTASSIUM CHLORIDE 20 MEQ TABCR PO STA (09:30)
[2019-04-09] MEDS ORDERED: AMIODARONE 200 MG TAB PO ONE (09:30)
[2019-04-09] MEDS: TRAVOPROST Z 0.004% OPH SOLN 2.5 ML BTL OPB SCH (21:32)
[2019-04-10 06:56] LABS: BUN Creatinine Ratio 19.6 (10-20); Calcium 8.9 mg/dl (8.5-10.1); Creatinine Clr Calc Pharmacy 62.5 ml/min; Est GFR (African American) 92.1; Est GFR (Non-African American) 79.4; Potassium 3.5 mmol/L (3.5-5.1)
[2019-04-10] MEDS: SPIRONOLACTONE 25 MG TAB PO SCH (08:12)
[2019-04-10] MEDS: ASPIRIN 81 MG ECTAB PO SCH (08:12)
[2019-04-10] MEDS: CEROVITE ADV FORMULA TAB PO SCH (08:12)
[2019-04-10] MEDS: APIXABAN 5 MG TABLET PO SCH (08:12)
[2019-04-10] MEDS: FUROSEMIDE 20 MG TAB PO SCH (08:12)
[2019-04-10] MEDS: AMIODARONE 200 MG TAB PO SCH (08:13)
[2019-04-10] MEDS ORDERED: POTASSIUM CHLORIDE 10 MEQ TABCR PO STA (08:39)
[2019-04-10] MEDS ORDERED: MAGNESIUM OXIDE 400 MG TAB PO ONE (08:39)
--- NOTE | 2019-04-10 08:39 | Cardiology Progress Note ---
Date of Service April 10, 2019 Assessment & Plan (1) Atrial fibrillation with RVR: Patient initially presented with symptomatic atrial fibrillation with rapid ventricular response in February,. Transesophageal echocardiogram guided cardioversion was attempted at that time, but cardioversion not performed due to findings of significant spontaneous echocardiogram contrast, and suspicion of left atrial/left atrial appendage thrombus. She therefore returned on 04/08/2019 for repeat attempt at direct-current cardioversion having been on uninterrupted therapeutic anticoagulation with Eliquis for just over 5 weeks. Ongoing atrial fibrillation with rapid ventricular response was observed despite high-dose metoprolol and diltiazem treatment. The focused transesophageal echocardiogram study revealed significant left atrial/left atrial appendage stasis with spontaneous echo contrast, with no thrombus. Transient hypoxia was noted during the OBDULIO, she subsequently underwent successful direct-current cardioversion home with orthodox of sinus rhythm on 04/08/2019. Rhythm control strategy: The patient significant symptoms with her atrial fibrillation, as well as findings of severe biatrial enlargement on echocardiogram, it was felt that rhythm control strategy with amiodarone would be her best option. Risks and benefits of amiodarone treatment discussed with the patient and by Dr. Prince. Will plan on discharge today with following medication regimen: Amiodarone 200 mg tablet, 2 tablets 2 times per day for 7 days, then reduce to 1 tablet 2 times per day for the next month dose will be reassessed at the time of her follow-up visit with Dr. Ash on 05/19/2019. Continue prior to hospital dose of metoprolol tartrate 100 mg twice daily. Furosemide 20 mg by mouth daily. Spironolactone 25 mg by mouth daily for treatment of hypertension, in the setting of chronic hypokalemia. Stroke prophylaxis: Continue Eliquis 5 mg twice daily Hypertension: Diltiazem and hydrochlorothiazide have been discontinued. Future considerations include adding an JEMAL inhibitor or angiotensin receptor viola. (2) Hypertension: Medication recommendations as outlined above (3) Encounter for monitoring anti-arrhythmic therapy: EKG this a.m. reveals normal sinus rhythm at 89 bpm with mild diffuse nonspecific T wave flattening. Corrected QT interval is 452 ms which is acceptable. Previously noted PACs have resolved. Continue amiodarone therapy as outlined above. (4) Nocturnal hypoxia: Nocturnal pulse oximetry obtained with lowest reading of 64%, mean of 95%. Proceed with sleep medicine consultation as outpatient. Referral has been placed within the patient's [facility] outpatient chart given suspicion for obstructive sleep apnea in the setting of atrial fibrillation and hypertension. Subjective Chief complaint: Follow-up atrial fibrillation, hypertension Subjective: Patient feeling well. She is eager for discharge. No subjective palpitations. She had very brief episode of atrial fibrillation noted on telemetry yesterday morning without recurrence. This morning at 740 she had a 7 beat run of narrow complex tachycardia consistent with atrial tachycardia versus recurrent atrial fibrillation at 120 bpm from which she was asymptomatic. For the most part sinus rhythm in the range of 70 bpm has been noted on telemetry, sinus tachycardia at 105 bpm was present when she was washing up in the bathroom this morning. IV amiodarone was discontinued yesterday 04/09/2019. Review of Systems Review of Systems: All systems reviewed & are unremarkable except as noted in HPI & below Cardiovascular: no chest pain, no chest pain with activity, no dyspnea at rest, no paroxysmal nocturnal dyspnea, no palpitations and no syncope Physical Exam Physical Exam: Temp Pulse Resp BP Pulse Ox 36.7 C 85 19 158/80 H 95 04/10/19 07:08 04/10/19 07:08 04/10/19 07:08 04/10/19 07:08 04/10/19 07:08 Constitutional: WD/WN, vitals as above Respiratory: normal respiratory effort, lungs clear to auscultation Cardiovascular: RRR, no murmur, no edema Gastrointestinal (Abdomen): normal bowel sounds, soft, nontender, no hepatosplenomegaly Neurologic: PERRL, EOMI, accommodation nl, no face palsy, no dysarthria Results & Data Vital Signs (Past 12 Hours) Vital Signs Temp Pulse Resp BP BP Pulse Ox 04/10/19 07:08 36.7 C 85 19 158/80 H 95 04/10/19 04:40 36.7 C 92 H 18 152/83 H 91 04/09/19 23:05 36.8 C 83 18 166/83 H 95 Laboratory Results Comprehensive Metabolic Panel 04/10/19 Range/Units 05:31 Sodium 138 (136-145) mmol/L Potassium 3.5 (3.5-5.1) mmol/L Chloride 104 (98-107) mmol/L Carbon Dioxide 27 (21-32) mmol/L BUN 14 (7-18) mg/dl Creatinine 0.73 (0.6-1.2) mg/dl Glucose 88 (70-99) mg/dl Calcium 8.9 (8.5-10.1) mg/dl Intake and Output 04/09/19 04/10/19 04/10/19 22:59 06:59 14:59 Intake Total 670 / 1245.6 Balance 670 / 1245.6 Intake: Oral 670 / 1085 Other: Weight 81.7 kg (1) Hypertension Hypertension type: unspecified Qualified Code(s): I10 - Essential (primary) hypertension
[2019-04-10] MEDS ORDERED: METOPROLOL TARTRATE 100 MG TAB PO SCH (09:00)
--- NOTE | 2019-04-10 09:12 | Discharge Summary ---
Date of Service April 10, 2019 Admission HPI Per Admitting Provider Tere Crowell is a 79-year-old female whose recent cardiac history dates back to February, when she was seen in inpatient cardiology consultation by Dr. Ash of our practice for the diagnosis of symptomatic atrial fibrillation with rapid ventricular response. She had undergone a transesophageal echocardiogram during that hospital stay on 02/28/2019 with findings of significant spontaneous echo contrast in the left atrium and left atrial appendage, and echodensity noted in the left atrium and left atrial appendage consistent with left atrial thrombus. Direct current cardioversion was therefore not performed, and the patient has been anticoagulated with Eliquis for 5 weeks in the interim. She had been seen in the emergency room on 03/27/2019 for mild bruising of her leg, but her anticoagulation was not interrupted. At the time for most recent outpatient cardiology visit with Dr. Ash on 03/25/2019, ongoing atrial fibrillation with rapid ventricular response was noted. She notes that she is easily fatigued with exertion with exertional shortness of breath. Past Medical History: 1. Persistent atrial fibrillation 2. Left atrial appendage thrombus, transesophageal echocardiogram, 02/28/2019 3. Hypertension Principal Diagnosis Atrial fibrillation Discharge Data Allergies Allergy/AdvReac Type Severity Reaction Status Date / Time latex Allergy Unknown HIVES Verified 04/01/19 09:13 No Known Drug Allergies Allergy Unknown . Verified 04/01/19 09:13 Procedures Performed Operation Date: 04/08/19 07:30 Actual Procedures p Echo Transesophageal - DO abisai Valenzuela Echo Color Flow - DO abisai Valenzuela Echo Doppler Complete - Michael Prince DO Hospital Course (1) Atrial fibrillation with RVR: Patient initially presented with symptomatic atrial fibrillation with rapid ventricular response in February,. Transesophageal echocardiogram guided cardioversion was attempted at that time, but cardioversion not performed due to findings of significant spontaneous echocardiogram contrast, and suspicion of left atrial/left atrial appendage thrombus. She therefore returned on 04/08/2019 for repeat attempt at direct-current cardioversion having been on uninterrupted therapeutic anticoagulation with Eliquis for just over 5 weeks. Ongoing atrial fibrillation with rapid ventricular response was observed despite high-dose metoprolol and diltiazem treatment. The focused transesophageal echocardiogram study revealed significant left atrial/left atrial appendage stasis with spontaneous echo contrast, with no thrombus. Transient hypoxia was noted during the OBDULIO, she subsequently underwent successful direct-current cardioversion home with cheondoism of sinus rhythm on 04/08/2019. Rhythm control strategy: The patient significant symptoms with her atrial fibrillation, as well as findings of severe biatrial enlargement on echocardiogram, it was felt that rhythm control strategy with amiodarone would be her best option. Risks and benefits of amiodarone treatment discussed with the patient and by Dr. Prince. Will plan on discharge today with following medication regimen: Amiodarone 200 mg tablet, 2 tablets 2 times per day for 7 days, then reduce to 1 tablet 2 times per day for the next month dose will be reassessed at the time of her follow-up visit with Dr. Ash on 05/19/2019. Continue prior to hospital dose of metoprolol tartrate 100 mg twice daily. Furosemide 20 mg by mouth daily. Spironolactone 25 mg by mouth daily for treatment of hypertension, in the setting of chronic hypokalemia. Stroke prophylaxis: Continue Eliquis 5 mg twice daily Hypertension: Diltiazem and hydrochlorothiazide have been discontinued. Future considerations include adding an JEMAL inhibitor or angiotensin receptor viola. (2) Hypertension: Medication recommendations as outlined above (3) Encounter for monitoring anti-arrhythmic therapy: EKG this a.m. reveals normal sinus rhythm at 89 bpm with mild diffuse nonspecific T wave flattening. Corrected QT interval is 452 ms which is acceptable. Previously noted PACs have resolved. Continue amiodarone therapy as outlined above. (4) Nocturnal hypoxia: Nocturnal pulse oximetry obtained with lowest reading of 64%, mean of 95%. Proceed with sleep medicine consultation as outpatient. Referral has been placed within the patient's [facility] outpatient chart given suspicion for obstructive sleep apnea in the setting of atrial fibrillation and hypertension. Total Time Total Time Spent Total Time Spent (In Minutes): 60 Total Time Includes: Examination of the Patient, Discharge Planning, Medication Reconciliation and Communication With Other Providers Discharge Plan Discharge Items Reason For Visit: ATRIAL FIBRILLATION, ANTIARRHYTHMIC ADMINISTRATION Discharge Diagnosis: Atrial fibrillation, successful conversion to sinus rhythm, hypertension, nocturnal hypoxia. Activity: Resume your previous activity Non-emergency contact: Manager Personal Call non-emergency contact if: you have any medication questions and your symptoms worsen Follow-up/Referrals: Inga Fontaine PA-C [Primary Care Provider] - Diet: Heart Healthy Addtl Attending Provider Instructions: Continue heart healthy diet and medication treatment as described. Keep your follow up visit as planned with Dr Ash on 05/19/19 at 11 am, Sher Boateng. Pending Studies at Discharge: No Stand-Alone Forms: My [facility] Qualys, Smoking Cessation Medications and DC Order Prescriptions: New amiodarone 200 mg Tablet See Rx Instructions .ROUTE .COMPLEX Qty: 70 RF: 5 spironolactone 25 mg Tablet 25 mg PO QAM Qty: 30 RF: 5 furosemide 20 mg Tablet 20 mg PO QAM Qty: 30 RF: 5 Continued Travatan Z 0.004 % drops 1 drp OPB HS RF: 0 aspirin [Aspir-81] 81 mg Tablet,Delayed Release (Dr/Ec) 81 mg PO DAILY RF: 0 Ocuvite Adult 50 Plus 250-5-1 mg Capsule 1 cap PO DAILY RF: 0 multivitamin [Multiple Vitamins] Tablet 1 tab PO DAILY RF: 0 loratadine 10 mg Tablet 10 mg PO DAILY PRN (Reason: Allergy Symptoms) RF: 0 Eliquis 5 mg Tablet 5 mg PO BID Qty: 60 RF: 5 metoprolol tartrate 100 mg Tablet 100 mg PO BID Qty: 60 RF: 5 Discontinued hydrochlorothiazide 25 mg tablet 25 mg PO DAILY RF: 0 diltiazem HCl 240 mg Capsule,Extended Release 24hr 240 mg PO QAM Qty: 30 RF: 5 Admission Data Admit Date/Time: 04/08/19 07:57 Attending Provider: Michael Prince Admit Provider: Michael Prince Primary Care Provider: Inga Fontaine
--- NOTE | 2019-04-11 08:15 | Electrocardiogram Report ---
Test Reason : Blood Pressure : / mmHG Vent. Rate : 088 BPM Atrial Rate : 088 BPM P-R Int : 146 ms QRS Dur : 078 ms QT Int : 328 ms P-R-T Axes : 063 -08 -08 degrees QTc Int : 396 ms Normal sinus rhythm Nonspecific ST and T wave abnormality Abnormal ECG When compared with ECG of 09-APR-2019 07:06, Nonspecific T wave abnormality, worse in Lateral leads QT has shortened Confirmed by Tom Beaver ([id number]) on 04/10/2019 5:43:33 PM Referred By: Taras Ash Confirmed By:Ketan Beaver
--- NOTE | 2019-04-17 07:36 | Coding Query ---
CONGESTIVE HEART FAILURE To Promote full compliance with coding requirements relating to patient care, physician participation is requested in all cases of furnace brazer uncertainty. Please assist us with the following questions. A diagnosis of Congestive Heart Failure is documented in the patient's medical record on the Addendum of the 04/08/19 Cardiology Progress Note (documentation says chest x-ray does reveal mild interstitial changes consistent with CHF, and trace pleural effusions). To accurately code this diagnosis and to compare patient severity, we ask that you specify the type of heart failure by placing an X within the parenthesis (x). 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 Please check the appropriate box: ( x) Present on Admission ( ) Not Present On Admission ( ) Clinically undetermined Thank you Shanti MYRICK
== END 2019-04-10 10:30 | disposition home or self-care (01) | DRG 308 ==
LOC: CC 05:38 → 2S 07:57

== ENCOUNTER 2021-01-27 17:11 | Inpatient (IN) ==
[2021-01-27 17:47] LABS: Basophils # (auto) 0.02 K/uL (0-0.2); Basophils % (auto) 0.2 %; Eosinophils # (auto) 0.09 K/uL (0-0.5); Hemoglobin 13.3 g/dL (12.0-16.0); Immature Granulocytes # (auto) 0.03 K/uL (0.00-0.02); Immature Granulocytes % (auto) 0.3 %; Lymphocytes % (auto) 20.9 %; Mean Corpuscular Hemoglobin 32.1 pg (25-34); Mean Corpuscular Hgb Conc 34.1 g/dL (32-36); Mean Corpuscular Volume 94.2 fL (80-100); Mean Platelet Volume 11.2 fL (7.4-10.4); Monocytes # (auto) 0.57 K/uL (0.11-0.59); Monocytes % (auto) 6.6 %; Neutrophils # (auto) 6.09 K/uL (1.4-6.5); Platelet Count 268 K/uL (130-400); RDW Coefficient of Variation 12.9 % (11.5-14.5); Red Blood Count 4.14 M/uL (4.2-5.4)
--- NOTE | 2021-01-27 17:59 | Emergency Department Note ---
Impression & Plan Atrial fibrillation with RVR, Hypertension, BASURTO (dyspnea on exertion) ED Provider Note Provider: Tony Chi MD DATE OF SERVICE: 01/27/2021 CHIEF COMPLAINT: Irregular heartbeat HISTORY OF PRESENT ILLNESS: Patient is a 80-year-old female past medical history of hypertension, dyslipidemia, and paroxysmal atrial fibrillation currently on Eliquis presenting today referred from the outpatient office due to elevated heart rate. Patient states she has been a little more winded with exertion but denies any chest pain or significant palpitations. Patient states he is little bit of dependent edema in her lower legs the other day but this is not been increased. Denies any fevers, URI symptoms, cough, or bleeding issues. She states compliance with her home blood thinner. She believes that her CPAP which parts of been recalled on and she is now been using for several days may have se t off this episode where her heart has been feeling off. This may have been a day or 2. Patient again denies any chest pain. Referred from the office for further care including rate control and possible cardioversion. She states that she was electrically cardioverted at the very end of 2018 and did well with this. REVIEW OF SYSTEMS: A total of 10 review of systems was obtained and negative ex cept as stated above in the HPI. PAST MEDICAL HISTORY: As noted above MEDICATIONS: Reviewed home medications includes Eliquis and she states compliance with this SOCIAL HISTORY: Non-smoker, lives at home with PHYSICAL EXAM: GENERAL: alert and oriented in no acute distress on stretcher Head: normocephalic and atraumatic EYES: No injection, discharge or icterus. NECK: Trachea midline. LUNGS: Airway patent. No retractions. Breath sounds clear with good air entry bilaterally. HEART: Regular tachycardic rate and rhythm. No chest wall tenderness ABDOMEN: Soft and non-tender, without guarding or rebound. SKIN: Acyanotic, warm, dry, without rashes EXTREMITIES: Without significant deformity or tenderness with trace bilateral pedal edema NEUROLOGICAL: No focal deficits. No aphasia. No facial droop or slurred speech. Ambulatory. EK beats minute atrial fibrillation with rapid ventricular response. QTc 467. No acute ST segment elevation or depression appreciated. CONTINUOUS CARDIAC MONITORING: was ordered and showed a heart rate of 90s-150s bpm in atrial fibrillation Patient's laboratory studies and imaging reviewed. Differential includes Premature contractions, electrolyte abnormality, cardiac dysrhythmia, thyroid dysfunction, pulmonary embolism, infection, gastro intestinal, as well as other pathologies. IMPRESSION/MEDICAL DECISION MAKING: Patient known history of A. fib now with A. fib RVR. States compliance with anticoagulant/Eliquis at home. Patient was interested in possible electrocardioversion given prior history of similar. Patient not hypoxic and denies significant chest pain. Chest x-ray without significant acute pathology noted per radiology such as pleural effusion, pneumonia, or pulmonary edema. Patient has a little bit of shortness of breath with exertion but minimal. Basic blood work was obtained here. Given a small amount of magnesium as well as potassium for optimization. Discussed with cardiology, Dr. Ash as is her by the office prior to her arrival. He recommended starting the patient on some diltiazem for rate control and keeping the patient overnight for further observation. If persistently in A fib till the morning she could be cardioverted at that time. Discussed with the patient and she was agreeable. No significant hypomagnesemia or hypokalemia although for optimization purposes a small amount of potassium will be given. Blood work here otherwise without evidence of troponin elevation or thyroid dysfunction. DIAGNOSIS: Atrial fib and rapid ventricular response, dyspnea on exertion DISPOSITION: Hospitalist will evaluate Critical Care I have personally spent 31 minutes of critical care time in the direct management of this patient. This includes bedside care, interpretation of diagnostic studies, and testing, discussion with consultants, patient, and family members, and other required patient management activities. These 31 minutes is in excess of all separately billable procedures. Past Med/Surg History Medical History (Updated 01/27/21 @ 18:56 by Bruna Madison PA-C) Atrial fibrillation with RVR dx 02/2019. follows w/ Dr. Ash. On Eliquis. Borderline hyperlipidemia Diverticular disease Glaucoma Hypertension Left atrial thrombus On anticoagulant therapy SARANYA on CPAP Surgical History History of bilateral breast reduction surgery History of colonoscopy History of tooth extraction History of tubal ligation Family History Mother Hypertension Stroke Father Hypertension Stroke Other No family history of adverse response to anesthesia Social History Smoking Status: Never smoker Second Hand Exposure: No; Hx Alcohol Use: No Hx Substance Use: No Preferred Language: Belizean Communication Ability: Effective Job Analysis Manager Required: No Beliefs That Will Affect Care: None Current Living Situation: Spouse Feels Safe at Home: Yes Assistive Devices: None Allergies Allergies Allergy/AdvReac Type Severity Reaction Status Date / Time latex Allergy Intermediate HIVES Verified 01/27/21 18:02 POLLEN Allergy Mild Sneezing Uncoded 01/27/21 18:02 Home Meds Home Medications Medication Instructions Recorded Confirmed loratadine 10 mg tablet 10 mg PO DAILY 02/26/19 01/27/21 travoprost 0.004 % eye drops 1 drp OPB HS 02/26/19 01/27/21 (Travatan Z) vit C,E,zinc,copper-culsn4h 250 1 cap PO DAILY 02/26/19 01/27/21 mg-lutein 5 mg-zeaxanthin 1 mg capsule (Ocuvite Adult 50 Plus) amlodipine 5 mg tablet 5 mg PO DAILY 01/27/21 01/27/21 furosemide 20 mg tablet 20 mg PO 3XWK 01/27/21 01/27/21 metoprolol succinate 100 mg 100 mg PO DAILY 01/27/21 01/27/21 tablet,extended release 24 hr rosuvastatin 5 mg tablet 5 mg PO DAILY 01/27/21 01/27/21 spironolactone 25 mg tablet 25 mg PO 3XWK 01/27/21 01/27/21 Previous Rx's Medication Instructions Recorded apixaban 5 mg tablet (Eliquis) 5 mg PO BID #60 tab 03/01/19 Results & Data (ED) Vital Signs Vital Signs - 24 hr 01/27/21 17:16 Temperature 36.5 C Temperature Source Temporal Artery Scan Pulse Rate 146 H Respiratory Rate 18 Respiratory Effort / Characteristics Non-Labored Respiratory Depth Normal Pulse Oximetry 97 Oxygen Delivery Method Room Air Sepsis Recent Fever Within 48 Hours No Sepsis New/Unexplained Change in Mental Status No Sepsis Action Taken by Nursing No Action Required Laboratory Data Result diagrams: 01/27/21 17:36 01/27/21 17:36 Lab Results 01/27/21 01/27/21 01/27/21 Range/Units 17:36 17:36 17:36 WBC 8.60 (4.8-10.8) K/uL RBC 4.14 L (4.2-5.4) M/uL Hgb 13.3 (12.0-16.0) g/dL Hct 39.0 (37-47) % MCV 94.2 (80-100) fL MCH 32.1 (25-34) pg MCHC 34.1 (32-36) g/dL RDW Std Deviation 45.0 (36.4-46.3) fL RDW Coeff of Harsha 12.9 (11.5-14.5) % Plt Count 268 (130-400) K/uL MPV 11.2 H (7.4-10.4) fL Immature Gran % (Auto) 0.3 % Neut % (Auto) 71.0 % Lymph % (Auto) 20.9 % [place] % (Auto) 6.6 % Eos % (Auto) 1.0 % Baso % (Auto) 0.2 % Neut # (Auto) 6.09 (1.4-6.5) K/uL Lymph # (Auto) 1.80 (1.2-3.4) K/uL [place] # (Auto) 0.57 (0.11-0.59) K/uL Eos # (Auto) 0.09 (0-0.5) K/uL Baso # (Auto) 0.02 (0-0.2) K/uL Immature Gran # (Auto) 0.03 H (0.00-0.02) K/uL PT Cancelled INR Cancelled Sodium 139 (136-145) mmol/L Potassium 3.8 (3.5-5.1) mmol/L Chloride 106 (98-107) mmol/L Carbon Dioxide 24 (21-32) mmol/L Anion Gap 9.0 (3-11) BUN 18 (7-18) mg/dl Creatinine 0.90 (0.6-1.2) mg/dl Est Cr Clr Drug Dosing 48.5 ml/min Est GFR ( Amer) 71.0 ml/min Est GFR (Non-Af Amer) 61.2 ml/min BUN/Creatinine Ratio 20.3 H (10-20) Glucose 102 H (70-99) mg/dl Calcium 9.5 (8.5-10.1) mg/dl Magnesium 2.2 (1.8-2.4) mg/dl Total Bilirubin 0.5 (0.2-1) mg/dl AST 18 (15-37) U/L ALT 18 (12-78) U/L Alkaline Phosphatase 91 (45-117) U/L Troponin I < 0.015 (0-0.045) ng/ml Total Protein 8.1 (6.4-8.2) gm/dl Albumin 3.8 (3.4-5.0) gm/dl Globulin 4.3 H (2.5-4.0) gm/dl Albumin/Globulin Ratio 0.9 (0.9-2) TSH 3.360 (0.300-4.500) uIu/ml COVID-19 Eval Order 01/27/21 Range/Units 18:20 WBC (4.8-10.8) K/uL RBC (4.2-5.4) M/uL Hgb (12.0-16.0) g/dL Hct (37-47) % MCV (80-100) fL MCH (25-34) pg MCHC (32-36) g/dL RDW Std Deviation (36.4-46.3) fL RDW Coeff of Harsha (11.5-14.5) % Plt Count (130-400) K/uL MPV (7.4-10.4) fL Immature Gran % (Auto) % Neut % (Auto) % Lymph % (Auto) % [place] % (Auto) % Eos % (Auto) % Baso % (Auto) % Neut # (Auto) (1.4-6.5) K/uL Lymph # (Auto) (1.2-3.4) K/uL [place] # (Auto) (0.11-0.59) K/uL Eos # (Auto) (0-0.5) K/uL Baso # (Auto) (0-0.2) K/uL Immature Gran # (Auto) (0.00-0.02) K/uL PT INR Sodium (136-145) mmol/L Potassium (3.5-5.1) mmol/L Chloride (98-107) mmol/L Carbon Dioxide (21-32) mmol/L Anion Gap (3-11) BUN (7-18) mg/dl Creatinine (0.6-1.2) mg/dl Est Cr Clr Drug Dosing ml/min Est GFR ( Amer) ml/min Est GFR (Non-Af Amer) ml/min BUN/Creatinine Ratio (10-20) Glucose (70-99) mg/dl Calcium (8.5-10.1) mg/dl Magnesium (1.8-2.4) mg/dl Total Bilirubin (0.2-1) mg/dl AST (15-37) U/L ALT (12-78) U/L Alkaline Phosphatase (45-117) U/L Troponin I (0-0.045) ng/ml Total Protein (6.4-8.2) gm/dl Albumin (3.4-5.0) gm/dl Globulin (2.5-4.0) gm/dl Albumin/Globulin Ratio (0.9-2) TSH (0.300-4.500) uIu/ml COVID-19 Eval Order Covid19 at [facility] Administered Medications Discontinued Medications Diltiazem HCl (Diltiazem Hcl 5 Mg/Ml 5 Ml Vial) 15 mg IV NOW STA Stop: 01/27/21 18:10 Last Admin: 01/27/21 18:40 Dose: 15 mg Documented by: [id number] Cosigned by: [id number] Magnesium Sulfate/Dextrose (Magnesium Sulfate / D5w) 1 gm in 100 mls @ 400 mls/hr IV Q15M CARA Stop: 01/27/21 18:14 Last Infusion: 01/27/21 18:40 Dose: 0 mls/hr Documented by: [id number] Admin: 01/27/21 18:14 Dose: 400 mls/hr Documented by: [id number] Potassium Chloride (K Bebo / Wtr) 10 meq in 100 mls @ 100 mls/hr IV ONE ONE Stop: 01/27/21 19:14 Last Admin: 01/27/21 18:45 Dose: 100 mls/hr Documented by: [id number] Potassium Chloride (Potassium Chloride Crtab 20 Meq Tabcr) 20 meq PO NOW STA Stop: 01/27/21 18:16 Last Admin: 01/27/21 18:48 Dose: 20 meq Documented by: [id number] Imaging Data Radiologist's Impression: Chest X-Ray 01/27/21 17:46 XR chest 1V portable HISTORY: Atrial fibrillation. COMPARISON: Chest 04/08/2019. FINDINGS: There are low lung volumes. No pneumothorax. No pleural effusions. No evidence for pulmonary edema. The lungs are clear. The cardiac silhouette remains mildly enlarged. IMPRESSION: Stable mild cardiomegaly. Otherwise, no acute process within the chest. ACT 112: Negative or not required by law. Electronically signed by: Mendel Ryan M.D. 01/27/2021 6:05 PM Discharge Plan Visit Data Chief Complaint: Cardiac Assessment Stated Complaint: IRREGULAR HEART RATE, REFERRED BY DOCTOR ED Provider: Tony Chi Discharge Problem: Atrial fibrillation with RVR, Hypertension, BASURTO (dyspnea on exertion) Patient Disposition: Being Evaluated by Hospitalist Forms Stand Alone Forms: [employer] Prescriptions Prescriptions: No Action travoprost [Travatan Z] 0.004 % drops 1 drp OPB HS RF: 0 Ocuvite Adult 50 Plus 250-5-1 mg Capsule 1 cap PO DAILY RF: 0 loratadine 10 mg Tablet 10 mg PO DAILY RF: 0 Eliquis 5 mg Tablet 5 mg PO BID Qty: 60 RF: 5 metoprolol succinate 100 mg tablet extended release 24 hr 100 mg PO DAILY RF: 0 amlodipine 5 mg tablet 5 mg PO DAILY RF: 0 rosuvastatin 5 mg tablet 5 mg PO DAILY RF: 0 spironolactone 25 mg tablet 25 mg PO 3XWK RF: 0 furosemide 20 mg tablet 20 mg PO 3XWK RF: 0 Referrals Referrals: Inga Fontaine PA-C [Primary Care Provider] - Discharge Problem: Hypertension Qualifiers: Hypertension type: unspecified Qualified Code(s): I10 - Essential (primary) hypertension
[2021-01-27] MEDS ORDERED: MAGNESIUM SULFATE / D5W 1 GM/100 ML BAG IV SCH (18:00)
[2021-01-27 18:06] LABS: Alanine Aminotransferase 18 U/L (12-78); Albumin Level 3.8 gm/dl (3.4-5.0); Aspartate Aminotransferase 18 U/L (15-37); BUN Creatinine Ratio 20.3 (10-20); Blood Urea Nitrogen 18 mg/dl (7-18); Calcium 9.5 mg/dl (8.5-10.1); Carbon Dioxide 24 mmol/L (21-32); Chloride 106 mmol/L (98-107); Creatinine Clr Calc Pharmacy 48.5 ml/min; Est GFR (Non-African American) 61.2 ml/min; Glucose 102 mg/dl (70-99); Magnesium 2.2 mg/dl (1.8-2.4); Potassium 3.8 mmol/L (3.5-5.1); Sodium 139 mmol/L (136-145)
--- NOTE | 2021-01-27 18:06 | XRay Report ---
XR chest 1V portable HISTORY: Atrial fibrillation. COMPARISON: Chest 04/08/2019. FINDINGS: There are low lung volumes. No pneumothorax. No pleural effusions. No evidence for pulmonar y edema. The lungs are clear. The cardiac silhouette remains mildly enlarged. IMPRESSION: Stable mild cardiomegaly. Otherwise, no acute process within the chest. ACT 112: Negative or not required by law. Electronically signed by: Mendel Ryan M.D. 01/27/2021 6:05 PM
[2021-01-27] MEDS ORDERED: STAT IV Infusion **Titration per Protocol STA (18:09)
[2021-01-27] MEDS ORDERED: dilTIAZem HCl 5 MG/ML 5 ML VIAL IV STA (18:09)
[2021-01-27] MEDS ORDERED: POTASSIUM CHLORIDE / WTR 10 MEQ/100 ML PLCT IV ONE (18:15)
[2021-01-27] MEDS ORDERED: dilTIAZem HCL 125 MG in DEXTROSE 5% 100 ML IV SCH (18:15)
[2021-01-27] MEDS ORDERED: POTASSIUM CHLORIDE CRTAB 20 MEQ TABCR PO STA (18:15)
[2021-01-27 18:16] LABS: Albumin Globulin Ratio 0.9 (0.9-2); Alkaline Phosphatase 91 U/L (45-117); Bilirubin,Total 0.5 mg/dl (0.2-1); Globulin 4.3 gm/dl (2.5-4.0); Total Protein 8.1 gm/dl (6.4-8.2); Troponin I < 0.015 ng/ml (0-0.045)
--- NOTE | 2021-01-27 18:52 | History & Physical Report ---
Date of Service January 27, 2021 Assessment & Plan (1) Atrial fibrillation with RVR: (2) Hypertension: (3) Borderline hyperlipidemia: (4) SARANYA on CPAP: Plan: This is a 80-year-old female who has significant past medical history of PAF anticoagulated on Eliquis, history of left atrial appendage thrombus, HTN, HLD, SARANYA on CPAP, glaucoma who presents to ED at the referral of cardiology secondary to A. fib with RVR. Afib with RVR admit to tele consult cardiology continue diltiazem bolus and gtt continue eliquis npo after midnight for DCCV in a.m. last echo 01/17/21 EF 60-64%, grade II diastolic dysfunction, mod TR, severely enlarged Left atrium TSH WNL, mag 2.2, K 3.8 and replaced HTN continue amlodipine, metoprolol lasix/aldacone 3x/wk bp stable HLD continue crestor SARANYA on cpap CPAP at HS pt admits to being noncompliant for ~ 4 days during symptom onset Dispo: tele PCP: TEDDY Fontaine FULL CODE Pt was seen and examined in collaboration with Dr. Vera, please see addendum for further assessment and treatment plan History of Present Illness Chief Complaint: Referred from cardiology 05/11 to Afib with RVR. Primary Care Provider: Inga Fontaine PA-C This is a 80-year-old female who has significant past medical history of PAF anticoagulated on Eliquis, history of left atrial appendage thrombus, HTN, HLD, SARANYA on CPAP, glaucoma who presents to ED at the referral of cardiology secondary to A. fib with RVR. She was seen in clinic today due to concern for recurrence of A. fib. Patient was initially diagnosed with A. fib on 02/2019 with a [id number] score of 4. At that time she was also noted to have a history of a left atrial appendage thrombus and started on Eliquis. She underwent successful DCCV on 04/08/2019 and then started on amiodarone. Amiodarone was since discontinued late 2019 due to thyroid dysfunction. She presented to cardiology clinic today noting that she recently stopped using her CPAP for approximately 4 nights. She then noticed during the evening hours when not wearing CPAP her pulses seem to be weak and thready, otherwise she was asymptomatic. She did then resume wearing her CPAP. In clinic today patient presented with atrial fibrillation with RVR heart rates averaging 1 50-1 60. She did complain of dyspnea on exertion but otherwise denies fever, chills, sweats, lightheadedness, dizziness, syncope, chest pain, palpitations, cough, URI symptoms, orthopnea, PND, increasing lower extremity edema, nausea, vomiting, abdominal pain, change in bowel or urinary habits. She admits to being compliant with her Eliquis and has not missed any doses. She recently underwent echocardiogram 01/17/2021 which was stable and reviewed and LVEF of 60 to 64%, grade 2 diastolic dysfunction and left atrium is severely enlarged. In ED patient continued to be in A. fib with RVR. She was started on diltiazem bolus and drip. She also received magnesium and potassium supplementation. ED was in contact with cardiology who recommended n.p.o. after midnight and likely DCCV in the a.m. Allergies Allergy/AdvReac Type Severity Reaction Status Date / Time latex Allergy Intermediate HIVES Verified 01/27/21 18:02 Home Medications Medication Instructions Recorded Confirmed Type loratadine 10 mg tablet 10 mg PO DAILY 02/26/19 01/27/21 History travoprost 0.004 % eye drops 1 drp OPB HS 02/26/19 01/27/21 History (Travatan Z) vit C,E,zinc,copper-onvti6y 250 1 cap PO DAILY 02/26/19 01/27/21 History mg-lutein 5 mg-zeaxanthin 1 mg capsule (Ocuvite Adult 50 Plus) apixaban 5 mg tablet (Eliquis) 5 mg PO BID #60 tab 03/01/19 01/27/21 Rx amlodipine 5 mg tablet 5 mg PO DAILY 01/27/21 01/27/21 History furosemide 20 mg tablet 20 mg PO 3XWK 01/27/21 01/27/21 History metoprolol succinate 100 mg 100 mg PO DAILY 01/27/21 01/27/21 History tablet,extended release 24 hr rosuvastatin 5 mg tablet 5 mg PO DAILY 01/27/21 01/27/21 History spironolactone 25 mg tablet 25 mg PO 3XWK 01/27/21 01/27/21 History Past Med/Surg History Medical History (Updated 01/27/21 @ 18:56 by Bruna Madison PA-C) Atrial fibrillation with RVR dx 02/2019. follows w/ Dr. Ash. On Eliquis. Borderline hyperlipidemia Diverticular disease Glaucoma Hypertension Left atrial thrombus On anticoagulant therapy SARANYA on CPAP Surgical History History of bilateral breast reduction surgery History of colonoscopy History of tooth extraction History of tubal ligation Family History Mother Hypertension Stroke Father Hypertension Stroke Other No family history of adverse response to anesthesia Social History Smoking Status: Never smoker Second Hand Exposure: No; Do You Dip or Chew Tobacco: No; Tobacco Cessation Education Requested by Patient: No Hx Alcohol Use: Yes Alcohol type: wine and hard liquor Hx Substance Use: No Preferred Language: Lao Communication Ability: Effective Sales Agent Food Vending Service Required: No Beliefs That Will Affect Care: Orthodoxy Current Living Situation: Spouse Other Information That Helps Us Care for You: No Feels Safe at Home: Yes Safety Concerns: Feels Safe At This Time Assistive Devices: CPAP, Glasses and Hearing Aid - Bilateral Review of Systems Review of Systems: All systems reviewed & are unremarkable except as noted in HPI & below Physical Exam Physical Exam: Constitutional: WD/WN, vitals as above, NAD, sitting up in bed, pleasant, conversing easily Head: Normocephalic, Atraumatic Eyes: PERRL, conjunctivae normal, anicteric sclerae ENMT: external ear and nose normal, oropharynx normal Neck: trachea midline, no thyromegaly normal visual inspection Respiratory: normal respiratory effort, lungs clear to auscultation, no wheeze, rales, rhonchi. Normal insp/exp effort, no accessory muscle use Cardiovascular: IRR/IRR, no murmur, no edema Vessels: no JVD or carotid bruit Chest: normal inspection of chest Abdomen: normal bowel sounds, soft, nontender, no hepatosplenomegaly Musculoskeletal: no cyanosis or clubbing, extremities motor strength 5/5 Skin: no rashes, warm and dry normal turgor Neurologic: PERRL, EOMI, accommodation nl, no face palsy, no dysarthria CN's II-XI intact bilaterally and moves all extremities Psychiatric: A+Ox3, euthymic affect Lymphatic: no cervical or axillary lymphadenopathy : deferred Results & Data Results & Data ([facility]) Vital Signs (Past 12 Hours) Vital Signs Temp Pulse Resp Pulse Ox 01/27/21 17:16 36.5 C 146 H 18 97 Diagnostic Findings Chest X-Ray 01/27/21 17:46 XR chest 1V portable HISTORY: Atrial fibrillation. COMPARISON: Chest 04/08/2019. FINDINGS: There are low lung volumes. No pneumothorax. No pleural effusions. No evidence for pulmonary edema. The lungs are clear. The cardiac silhouette remains mildly enlarged. IMPRESSION: Stable mild cardiomegaly. Otherwise, no acute process within the chest. ACT 112: Negative or not required by law. Electronically signed by: Mendle Ryan M.D. 01/27/2021 6:05 PM Medications Administered Medication List Potassium Chloride (K Bebo / Wtr) 10 meq in 100 mls @ 100 mls/hr IV ONE ONE Stop: 01/27/21 19:14 Last Admin: 01/27/21 18:45 Dose: 100 mls/hr Documented by: [id number] Discontinued Medications Diltiazem HCl (Diltiazem Hcl 5 Mg/Ml 5 Ml Vial) 15 mg IV NOW STA Stop: 01/27/21 18:10 Last Admin: 01/27/21 18:40 Dose: 15 mg Documented by: [id number] Cosigned by: [id number] Magnesium Sulfate/Dextrose (Magnesium Sulfate / D5w) 1 gm in 100 mls @ 400 mls/hr IV Q15M CARA Stop: 01/27/21 18:14 Last Infusion: 01/27/21 18:40 Dose: 0 mls/hr Documented by: [id number] Admin: 01/27/21 18:14 Dose: 400 mls/hr Documented by: [id number] Potassium Chloride (Potassium Chloride Crtab 20 Meq Tabcr) 20 meq PO NOW STA Stop: 01/27/21 18:16 Last Admin: 01/27/21 18:48 Dose: 20 meq Documented by: [id number] ECG Rate (beats per minute): 154 Rhythm: atrial fibrillation Additional Comments: qtc 467ms COVID-19 Results Results COVID-19 Adm Lab Results: RBC 4.14 M/uL (4.2-5.4) L 01/27/21 WBC 8.60 K/uL (4.8-10.8) 01/27/21 Hgb 13.3 g/dL (12.0-16.0) 01/27/21 Hct 39.0 % (37-47) 01/27/21 Plt Count 268 K/uL (130-400) 01/27/21 Neutrophils (%) (Auto) 71.0 % 01/27/21 Lymphocytes (%) (Auto) 20.9 % 01/27/21 Monocytes # (Auto) 0.57 K/uL (0.11-0.59) 01/27/21 Eosinophils # (Auto) 0.09 K/uL (0-0.5) 01/27/21 Immature Granulocyte % (Auto) 0.3 % 01/27/21 Neutrophils # (Auto) 6.09 K/uL (1.4-6.5) 01/27/21 Lymphocytes # (Auto) 1.80 K/uL (1.2-3.4) 01/27/21 Monocytes # (Auto) 0.57 K/uL (0.11-0.59) 01/27/21 Eosinophils # (Auto) 0.09 K/uL (0-0.5) 01/27/21 Basophils # (Auto) 0.02 K/uL (0-0.2) 01/27/21 Immature Granulocyte # (Auto) 0.03 K/uL (0.00-0.02) H 01/27/21 Na 139 mmol/L (136-145) 01/27/21 K 3.8 mmol/L (3.5-5.1) 01/27/21 Cl 106 mmol/L (98-107) 01/27/21 CO2 24 mmol/L (21-32) 01/27/21 Anion Gap 9.0 (3-11) 01/27/21 BUN 18 mg/dl (7-18) 01/27/21 Creatinine 0.90 mg/dl (0.6-1.2) 01/27/21 BUN/Creatinine Ratio 20.3 (10-20) H 01/27/21 Glucose Level 102 mg/dl (70-99) H 01/27/21 Ca 9.5 mg/dl (8.5-10.1) 01/27/21 Total Bilirubin 0.5 mg/dl (0.2-1) 01/27/21 AST/SGOT 18 U/L (15-37) 01/27/21 ALT/SGPT 18 U/L (12-78) 01/27/21 Alkaline Phosphatase 91 U/L (45-117) 01/27/21 Total Protein 8.1 gm/dl (6.4-8.2) 01/27/21 Albumin 3.8 gm/dl (3.4-5.0) 01/27/21 Globulin 4.3 gm/dl (2.5-4.0) H 01/27/21 Albumin/Globulin Ratio 0.9 (0.9-2) 01/27/21 Troponin I < 0.015 ng/ml (0-0.045) 01/27/21 COVID-19 PCR NEGATIVE (Negative) 01/27/21 Chest X-Ray 01/27/21 Code Status & VTE Plan Code Status Full Code Supervising Physician Co-Signing Physician Notes IM ATTENDING : Patient seen and examined. History obtained from patient and records. Preceding documentation by Ms. Bruna Madison PA-C reviewed. FINAL ASSESSMENT AND PLAN as follows : Recurrent A. fib Past history cardioversion, on Eliquis attributed by outpatient cardiology provider to missing a few days of CPAP use for SARANYA Hypertension, BP stable Hyperlipidemia on statin Rx PCU Extra Toprol in attempt to wean off Cardizem infusion Cardiology consult Re: Recurrent A. fib (ER provider already in touch with Dr. Ash who had earlier recommended IV Cardizem infusion and keeping patient n.p.o. after midnight in anticipation of another cardioversion procedure if NSR conversion not achieved overnight.) CPAP use inpatient at night DVT prophylaxis. Eliquis Full code Text document was generated using [employer] voice recognition software. It may contain grammatical or spelling errors. Kindly contact undersigned for clarification of any documentation item in question. (1) Hypertension Hypertension type: unspecified Qualified Code(s): I10 - Essential (primary) hypertension
[2021-01-27] MEDS ORDERED: NSS + 20MEQ KCL 20 MEQ/1,000 ML BAG IV ONE (19:28)
[2021-01-27] MEDS ORDERED: METOPROLOL SUCC 25MG EXT REL TAB PO STA (20:08)
[2021-01-27] MEDS ORDERED: METOPROLOL SUCC 50MG EXT REL TAB PO STA (20:09)
[2021-01-27] MEDS ORDERED: ACETAMINOPHEN 325 MG TAB PO PRN (22:21)
[2021-01-27] MEDS ORDERED: TRAVOPROST Z 0.004% OPH SOLN 2.5 ML BTL OPB SCH (22:21)
[2021-01-27] MEDS ORDERED: PROMETHAZINE HCL 12.5 MG in SODIUM CHLORIDE 0.9% 50 ML IV PRN (22:21)
[2021-01-27] MEDS ORDERED: NITROGLYCERIN SL 0.4 MG/TAB TAB SL PRN (22:21)
[2021-01-27] MEDS ORDERED: traMADol HCL 50 MG TABLET PO PRN (22:21)
[2021-01-27] MEDS ORDERED: MoRPHine SULFATE 4 MG/ML 1 ML CARP\\VIAL IV PRN (22:21)
[2021-01-27] MEDS: dilTIAZem HCL 125 MG in DEXTROSE 5% 100 ML IV SCH (23:04)
[2021-01-27] MEDS: APIXABAN 5 MG TABLET PO SCH (23:11)
[2021-01-28] MEDS ORDERED: NSS + 20MEQ KCL 20 MEQ/1,000 ML BAG IV SCH (00:30)
[2021-01-28] MEDS: dilTIAZem HCL 125 MG in DEXTROSE 5% 100 ML IV SCH (05:30)
[2021-01-28 06:57] LABS: Basophils # (auto) 0.03 K/uL (0-0.2); Basophils % (auto) 0.5 %; Eosinophils # (auto) 0.19 K/uL (0-0.5); Hematocrit (blood only) 38.5 % (37-47); Hemoglobin 12.8 g/dL (12.0-16.0); Immature Granulocytes # (auto) 0.01 K/uL (0.00-0.02); Immature Granulocytes % (auto) 0.2 %; Lymphocytes # (auto) 1.51 K/uL (1.2-3.4); Lymphocytes % (auto) 24.2 %; Mean Corpuscular Hemoglobin 31.7 pg (25-34); Mean Corpuscular Hgb Conc 33.2 g/dL (32-36); Mean Corpuscular Volume 95.3 fL (80-100); Mean Platelet Volume 11.5 fL (7.4-10.4); Monocytes # (auto) 0.57 K/uL (0.11-0.59); Monocytes % (auto) 9.1 %; Neutrophils # (auto) 3.92 K/uL (1.4-6.5); Platelet Count 239 K/uL (130-400); RDW Coefficient of Variation 13.2 % (11.5-14.5); RDW Standard Deviation 46.5 fL (36.4-46.3); Red Blood Count 4.04 M/uL (4.2-5.4); White Blood Count 6.23 K/uL (4.8-10.8)
[2021-01-28 07:32] LABS: BUN Creatinine Ratio 18.3 (10-20); Calcium 8.8 mg/dl (8.5-10.1); Creatinine Clr Calc Pharmacy 68.9 ml/min; Est GFR (African American) 99.1 ml/min; Est GFR (Non-African American) 85.5 ml/min; Potassium 3.9 mmol/L (3.5-5.1)
--- NOTE | 2021-01-28 08:25 | Cardiology Consultation ---
Date of Consultation January 28, 2021 Assessment & Plan (1) Atrial fibrillation with RVR: (2) Hypertension: (3) Borderline hyperlipidemia: (4) SARANYA on CPAP: Patient with recurrent paroxysmal atrial fibrillation with rapid ventricular response. Has been compliant with outpatient anticoagulation so we will proceed directly to DC cardioversion. She is very anxious for discharge and I would be okay with discharging her later today after the cardioversion should everything proceeds smoothly and she tolerates it well. I suspect that not wearing her CPAP likely cause this event so we will hold off on addition of any antiarrhythmics at this time. She should be discharged home on her previous outpatient regimen. My office will call to arrange follow-up in the next few weeks. I called the patient's status post cardioversion to update him. He stated his gratitude and will be happy to pick her up later today. History of Present Illness Reason for Consultation: Afib with RVR Requesting Physician: Dr. Osei Attending Physician: Ari Osei MD History of Present Illness It was my pleasure to see Mrs. Crowell in cardiac consultation today January 28, 2021. She is a very pleasant 80-year-old woman who is well-known to our cardiology practice that presented to [facility] on 01/27/2021 per the direction of our office after being evaluated and found to be back in atrial fibrillation. She states that she has been in her normal state of health lately but several days ago noticed that her pulse was rapid. She denied any complaints with this specifically denied any associated chest pain, shortness of breath, palpitations, lightheadedness or dizziness. She called to make an appointment and when she was seen she was found to be back in atrial fibrillation. The only change recently was that she stopped wearing her BiPAP at the direction of [employer] after she was contacted about the devices recall. She has been compliant with all of her medications and denies missing any doses of her Eliquis. Past medical history: 1. Paroxysmal atrial fibrillation, diagnosed 02/2019 [id number] score of 4 (age 4, female, HTN) a. 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 S/p successful DCCV 04/08/2019- started on amiodarone at that time then discontinued late 2019 due to thyroid dysfunction 2. Hypertension 3. Dyslipidemia 4. Tricuspid valve regurgitation Allergies Allergy/AdvReac Type Severity Reaction Status Date / Time latex Allergy Intermediate HIVES Verified 01/27/21 18:02 Home Medications Medication Instructions Recorded Confirmed Type loratadine 10 mg tablet 10 mg PO DAILY 02/26/19 01/27/21 History travoprost 0.004 % eye drops 1 drp OPB HS 02/26/19 01/27/21 History (Travatan Z) vit C,E,zinc,copper-jqudz4d 250 1 cap PO DAILY 02/26/19 01/27/21 History mg-lutein 5 mg-zeaxanthin 1 mg capsule (Ocuvite Adult 50 Plus) apixaban 5 mg tablet (Eliquis) 5 mg PO BID #60 tab 03/01/19 01/27/21 Rx amlodipine 5 mg tablet 5 mg PO DAILY 01/27/21 01/27/21 History furosemide 20 mg tablet 20 mg PO 3XWK 01/27/21 01/27/21 History metoprolol succinate 100 mg 100 mg PO DAILY 01/27/21 01/27/21 History tablet,extended release 24 hr rosuvastatin 5 mg tablet 5 mg PO DAILY 01/27/21 01/27/21 History spironolactone 25 mg tablet 25 mg PO 3XWK 01/27/21 01/27/21 History Patient History Medical History Atrial fibrillation with RVR dx 02/2019. follows w/ Dr. Ash. On Eliquis. Borderline hyperlipidemia Diverticular disease Glaucoma Hypertension Left atrial thrombus On anticoagulant therapy SARANYA on CPAP Surgical History History of bilateral breast reduction surgery History of colonoscopy History of tooth extraction History of tubal ligation Family History Mother Hypertension Stroke Father Hypertension Stroke Other No family history of adverse response to anesthesia Social History Smoking Status: Never smoker Second Hand Exposure: No; Do You Dip or Chew Tobacco: No; Tobacco Cessation Education Requested by Patient: No Hx Alcohol Use: Yes Alcohol type: wine and hard liquor Hx Substance Use: No Preferred Language: Burmese Communication Ability: Effective Target Network Analyst Required: No Beliefs That Will Affect Care: Protestant marital status: Current Living Situation: Spouse How many Children do You have: 4 Other Information That Helps Us Care for You: No Feels Safe at Home: Yes Safety Concerns: Feels Safe At This Time Assistive Devices: CPAP Review of Systems Review of Systems: All systems reviewed & are unremarkable except as noted in HPI & below Physical Exam Physical Exam: General: Awake, alert and oriented x 3. No acute distress. HEENT: Normocephalic, atraumatic. Pupils equal, round and reactive to light and accommodation. Extraocular muscles are intact. Anicteric sclera. Moist mucous membranes. Neck: No JVD. No bruit. Cardiovascular: irregularly irregular, unable to appreciate murmur, rub or gallop. Pulmonary: Clear to auscultation bilaterally. No rales, rhonchi, or wheezing. Abdomen: Bowel sounds x 4, soft. No rebound, guarding or tenderness. No organomegaly. Extremities: No clubbing, cyanosis or edema. +2 pedal pulses bilaterally. Skin: Warm and dry. Results & Data ([facility]) Vital Signs (Past 12 Hours) Vital Signs Temp Pulse Pulse Resp BP BP Pulse Ox 01/28/21 08:01 36.6 C 91 H 18 113/76 98 01/28/21 07:47 77 01/28/21 06:00 114 H 112/74 97 01/28/21 05:00 107 H 14 109/62 99 01/28/21 04:00 85 16 112/76 97 01/28/21 03:23 85 18 98 01/28/21 03:00 36.4 C L 86 16 114/75 95 01/28/21 01:59 92 H 116/79 01/28/21 01:29 85 113/78 98 01/28/21 01:01 90 121/57 L 96 01/28/21 00:29 111 H 109/75 96 01/27/21 23:59 92 H 107/71 97 01/27/21 23:48 90 114/72 97 01/27/21 23:20 36.6 C 85 16 116/66 97 01/27/21 23:04 120 H 16 100/68 96 01/27/21 22:48 111/78 97 01/27/21 22:33 118 H 18 115/80 96 01/27/21 22:25 36.5 C 111 H 16 120/76 97 01/27/21 22:21 36.5 C 111 H 16 120/76 97 01/27/21 22:19 115 H 01/27/21 21:40 113 H 15 97 01/27/21 21:30 130 H 21 94 01/27/21 21:20 121 H 18 94 01/27/21 21:10 132 H 17 98 01/27/21 21:00 104 H 26 H 105/66 97 01/27/21 20:30 137 H 20 105/78 96 (1) Hypertension Hypertension type: unspecified Qualified Code(s): I10 - Essential (primary) hypertension
[2021-01-28] MEDS ORDERED: amLODIPine BESYLATE 5 MG TAB PO SCH (09:00)
[2021-01-28] MEDS ORDERED: NON-FORMULARY MEDICATION (C,E,Zinc,Copper 11-Omega3s-Lut [Ocuvite Adult 50 Plus] 250-5-1 m PO SCH (09:00)
[2021-01-28] MEDS ORDERED: ROSUVASTATIN CALCIUM 5 MG TAB PO SCH (09:00)
[2021-01-28] MEDS ORDERED: LORATADINE 10 MG TAB PO SCH (09:00)
--- NOTE | 2021-01-28 09:59 | Electrocardiogram Report ---
Test Reason : Blood Pressure : / mmHG Vent. Rate : 154 BPM Atrial Rate : 111 BPM P-R Int : 000 ms QRS Dur : 072 ms QT Int : 292 ms P-R-T Axes : 000 -18 058 degrees QTc Int : 467 ms Atrial fibrillation with rapid ventricular response Nonspecific ST abnormality Abnormal ECG When compared with ECG of 10-APR-2019 06:26, Atrial fibrillation has replaced Sinus rhythm Vent. rate has increased BY 66 BPM Confirmed by Toby Elias ([id number]) on 01/28/2021 9:58:41 AM Referred By: Michael Prince Confirmed By:Toby Elias
[2021-01-28] MEDS: APIXABAN 5 MG TABLET PO SCH (10:46)
--- NOTE | 2021-01-28 11:16 | Pre Anesthesia Assessment ---
Date of Service January 28, 2021 Pre Sedation Assessment Vital Signs Temp Pulse Pulse Resp BP BP Pulse Ox 01/28/21 10:42 36.8 C 105 H 18 113/72 96 01/28/21 08:01 36.6 C 91 H 18 113/76 98 01/28/21 07:47 77 01/28/21 06:00 114 H 112/74 97 01/28/21 05:00 107 H 14 109/62 99 01/28/21 04:00 85 16 112/76 97 01/28/21 03:23 85 18 98 01/28/21 03:00 36.4 C L 86 16 114/75 95 01/28/21 01:59 92 H 116/79 01/28/21 01:29 85 113/78 98 01/28/21 01:01 90 121/57 L 96 01/28/21 00:29 111 H 109/75 96 01/27/21 23:59 92 H 107/71 97 01/27/21 23:48 90 114/72 97 01/27/21 23:20 36.6 C 85 16 116/66 97 01/27/21 23:04 120 H 16 100/68 96 01/27/21 22:48 111/78 97 01/27/21 22:33 118 H 18 115/80 96 01/27/21 22:25 36.5 C 111 H 16 120/76 97 01/27/21 22:21 36.5 C 111 H 16 120/76 97 01/27/21 22:19 115 H 01/27/21 21:40 113 H 15 97 01/27/21 21:30 130 H 21 94 01/27/21 21:20 121 H 18 94 01/27/21 21:10 132 H 17 98 01/27/21 21:00 104 H 26 H 105/66 97 01/27/21 20:30 137 H 20 105/78 96 01/27/21 20:10 125 H 17 123/77 97 01/27/21 20:00 130 H 19 123/77 95 01/27/21 19:30 142 H 18 132/80 99 01/27/21 19:10 112 H 17 97 01/27/21 19:00 117 H 17 110/54 L 99 01/27/21 18:30 142 H 14 108/77 98 01/27/21 18:10 147 H 19 132/82 99 01/27/21 17:24 157 H 18 142/110 H 100 01/27/21 17:16 36.5 C 146 H 18 97 Pre-Sedation Airway Assessment Smoking Status: Never smoker Hx Sleep Apnea: No Notes The planned sedation has been discussed with the patient. Informed Consent was obtained. I have identified the patient, determined the appropriateness of sedation and have assessed the patient immediately prior to the procedure. All medicine(s) and interventions are by my order.
[2021-01-28] MEDS ORDERED: MIDAZOLAM HCL 5 MG/ML 1 ML VIAL ONE ×2 (11:23)
[2021-01-28] MEDS ORDERED: fentaNYL citrate 100 MCG/2 ML VIAL ONE (11:24)
[2021-01-28] MEDS ORDERED: FLUMAZENIL 0.1 MG/1 ML 10 ML VIAL IV ONE (11:24)
[2021-01-28] MEDS ORDERED: NALOXONE HCL 0.4 MG/1 ML VIAL/CARP ONE (11:24)
--- NOTE | 2021-01-28 12:16 | Post Anesthesia Assessment ---
Date of Service January 28, 2021 Post Sedation Assessment Vital Signs Temp Pulse Pulse Resp BP BP Pulse Ox 01/28/21 12:05 122 H 15 133/84 97 01/28/21 11:52 130 H 16 124/83 97 01/28/21 10:42 36.8 C 105 H 18 113/72 96 01/28/21 08:01 36.6 C 91 H 18 113/76 98 01/28/21 07:47 77 01/28/21 06:00 114 H 112/74 97 01/28/21 05:00 107 H 14 109/62 99 01/28/21 04:00 85 16 112/76 97 01/28/21 03:23 85 18 98 01/28/21 03:00 36.4 C L 86 16 114/75 95 01/28/21 01:59 92 H 116/79 01/28/21 01:29 85 113/78 98 01/28/21 01:01 90 121/57 L 96 01/28/21 00:29 111 H 109/75 96 01/27/21 23:59 92 H 107/71 97 01/27/21 23:48 90 114/72 97 01/27/21 23:20 36.6 C 85 16 116/66 97 01/27/21 23:04 120 H 16 100/68 96 01/27/21 22:48 111/78 97 01/27/21 22:33 118 H 18 115/80 96 01/27/21 22:25 36.5 C 111 H 16 120/76 97 01/27/21 22:21 36.5 C 111 H 16 120/76 97 01/27/21 22:19 115 H 01/27/21 21:40 113 H 15 97 01/27/21 21:30 130 H 21 94 01/27/21 21:20 121 H 18 94 01/27/21 21:10 132 H 17 98 01/27/21 21:00 104 H 26 H 105/66 97 01/27/21 20:30 137 H 20 105/78 96 01/27/21 20:10 125 H 17 123/77 97 01/27/21 20:00 130 H 19 123/77 95 01/27/21 19:30 142 H 18 132/80 99 01/27/21 19:10 112 H 17 97 01/27/21 19:00 117 H 17 110/54 L 99 01/27/21 18:30 142 H 14 108/77 98 01/27/21 18:10 147 H 19 132/82 99 01/27/21 17:24 157 H 18 142/110 H 100 01/27/21 17:16 36.5 C 146 H 18 97 Discharge Sedation Level of Care: Fast Track Phase II Post Sedation Plan On clinical assessment, the patient appears to have tolerated the sedation without complications. Patient is recovering as anticipated. Patient will continue to be monitored by nursing and may be discharged when sedation discharge criteria are met per below protocol. Upon Completions of procedure up to 15 minutes continue every 5 minute vital signs and the P.A.R. score; then discharge to a Phase I or Fast Track to Phase II per the following guidelines: * Discharge Patient to appropriate Phase II area if PAR is 8 or greater or return to pre- procedure baseline. The post - procedure orders will be as directed. * If PAR score is less than 8 or not return to pre-procedure baseline then patient will follow Phase I monitoring till PAR is reached for Phase II. The Phase I may be done in procedure room or may call to secure a Phase I area. * If naloxone or flumazenil are used for reversal, hold in Phase I for continued monitoring from when last reversal dose was given for a minimum of 60 minutes or longer pending the nurse and/or physician discretion of patient condition before discharge to Phase II. Please call the Sedation Physician to re-evaluate and complete post-note for discharge to Phase II area. Do NOT discharge from procedure sedation or Phase 1 until post- sedation evaluation note is complete by procedure /sedation MD Sedation Discharge Instructions to be given to the patient at discharge to home.
--- NOTE | 2021-01-28 12:19 | Cardioversion ---
Date of Service January 28, 2021 Electrical Cardioversion Rpt Electrical Cardioversion Report Informed consent obtained. Patient prepped. Adequate moderate sedation achieved with a total of Versed 2 mg and fentanyl 50 mcg. 360 J of synchronized direct-current energy was applied with successful conversion to normal sinus rhythm. Patient tolerated well without complication. To be recovered per protocol. Start time: 1210 Stop time: 1211 Plan: Return to telemetry. Okay to DC this evening if recovery proceeds as expected.
--- NOTE | 2021-01-28 15:18 | Electrocardiogram Report ---
Test Reason : Blood Pressure : / mmHG Vent. Rate : 060 BPM Atrial Rate : 060 BPM P-R Int : 158 ms QRS Dur : 078 ms QT Int : 460 ms P-R-T Axes : 083 -12 033 degrees QTc Int : 460 ms Sinus rhythm with Premature supraventricular complexes Low voltage QRS Borderline ECG When compared with ECG of 27-JAN-2021 17:27, Sinus rhythm has replaced Atrial fibrillation Vent. rate has decreased BY 94 BPM Confirmed by Jermaine Maier ([id number]) on 01/28/2021 3:18:21 PM Referred By: Michael Prince Confirmed By:Jermaine Maier
--- NOTE | 2021-01-28 16:28 | Hospitalist Progress Note ---
Date of Service January 28, 2021 Assessment & Plan (1) Atrial fibrillation with RVR: (2) Hypertension: (3) Borderline hyperlipidemia: (4) SARANYA on CPAP: Plan: Patient is a 80 yr female who has significant past medical history of PAF anticoagulated on Eliquis, history of left atrial appendage thrombus, HTN, HLD, SARANYA on CPAP, glaucoma who presents to ED at the referral of cardiology secondary to A. fib with RVR. Afib with RVR H/O recurrent paroxysmal atrial fibrillation S/P successful cardioversion Compliance with CPAP use likely cause for recurrence Cardizem drip discontinued Continue Eliquis for anticoagulation Continue metoprolol for rate control Advised to follow-up with cardiology in 1 week HTN continue amlodipine, metoprolol On Lasix/Aldactone 3x/wk HLD continue Statin SARANYA CPAP at HS DVT Px: Eliquis Code Status FULL CODE Admission and Anticipated Discharge Date Admission Date: January 27, 2021 Subjective Patient is seen and examined bedside Denies any symptoms this morning Had cardioversion today Denies chest pain, shortness, dizziness, nausea, abdominal pain Offers no other complaints Review of Systems Review of Systems: All systems reviewed & are unremarkable except as noted in Subjective Physical Exam Physical Exam: Physical Exam: Vitals signs as noted above General Appearance:Moderately built and nourished, no apparent distress Head: normocephalic, Atraumatic Eyes: normal inspection, EOMI Neck: supple, Trachea midline Respiratory/Chest: Normal breath sounds, CTA, No accessory muscle use Cardiovascular: Irregularly irregular, No murmur Abdomen/GI:Soft, Non tender, Bowel sounds present Extremities/Musculoskeletal:normal inspection, no edema Neurologic/Psych:AAOX3, grossly no focal neurological deficits Skin: normal color, warm Results & Data Results & Data ([facility]) Vital Signs (Past 12 Hours) Vital Signs Temp Pulse Pulse Resp BP Pulse Ox 01/28/21 15:35 75 01/28/21 15:02 36.4 C L 71 18 122/63 98 01/28/21 14:16 86 17 124/82 98 01/28/21 12:45 63 16 113/68 97 01/28/21 12:30 59 L 16 92/52 L 96 01/28/21 12:15 59 L 16 105/54 L 99 01/28/21 12:10 116 H 15 105/77 93 01/28/21 12:05 122 H 15 133/84 97 01/28/21 11:52 130 H 16 124/83 97 01/28/21 10:42 36.8 C 105 H 18 113/72 96 01/28/21 08:01 36.6 C 91 H 18 113/76 98 01/28/21 07:47 77 01/28/21 06:00 114 H 112/74 97 01/28/21 05:00 107 H 14 109/62 99 Laboratory Results Short CBC 01/27/21 01/28/21 Range/Units 17:36 06:25 WBC 8.60 6.23 (4.8-10.8) K/uL Hgb 13.3 12.8 (12.0-16.0) g/dL Hct 39.0 38.5 (37-47) % Plt Count 268 239 (130-400) K/uL BMP 01/27/21 01/28/21 17:36 06:25 Sodium 139 141 Potassium 3.8 3.9 Chloride 106 112 H Carbon Dioxide 24 24 BUN 18 12 Creatinine 0.90 0.64 Glucose 102 H 97 Calcium 9.5 8.8 Cardiac Enzymes 01/27/21 Range/Units 17:36 Troponin I < 0.015 (0-0.045) ng/ml Liver Function 01/27/21 Range/Units 17:36 Total Bilirubin 0.5 (0.2-1) mg/dl AST 18 (15-37) U/L ALT 18 (12-78) U/L Alkaline Phosphatase 91 (45-117) U/L Albumin 3.8 (3.4-5.0) gm/dl (1) Hypertension Hypertension type: unspecified Qualified Code(s): I10 - Essential (primary) hypertension
--- NOTE | 2021-01-28 16:45 | Discharge Summary ---
Date of Service January 28, 2021 Admission HPI Per Admitting Provider This is a 80-year-old female who has significant past medical history of PAF anticoagulated on Eliquis, history of left atrial appendage thrombus, HTN, HLD, SARANYA on CPAP, glaucoma who presents to ED at the referral of cardiology secondary to A. fib with RVR. She was seen in clinic today due to concern for recurrence of A. fib. Patient was initially diagnosed with A. fib on 02/2019 with a [id number] score of 4. At that time she was also noted to have a history of a left atrial appendage thrombus and started on Eliquis. She underwent successful DCCV on 04/08/2019 and then started on amiodarone. Amiodarone was since discontinued late 2019 due to thyroid dysfunction. She presented to cardiology clinic today noting that she recently stopped using her CPAP for approximately 4 nights. She then noticed during the evening hours when not wearing CPAP her pulses seem to be weak and thready, otherwise she was asymptomatic. She did then resume wearing her CPAP. In clinic today patient presented with atrial fibrillation with RVR heart rates averaging 1 50-1 60. She did complain of dyspnea on exertion but otherwise denies fever, chills, sweats, lightheadedness, dizziness, syncope, chest pain, palpitations, cough, URI symptoms, orthopnea, PND, increasing lower extremity edema, nausea, vomiting, abdominal pain, change in bowel or urinary habits. She admits to being compliant with her Eliquis and has not missed any doses. She recently underwent echocardiogram 01/17/2021 which was stable and reviewed and LVEF of 60 to 64%, grade 2 diastolic dysfunction and left atrium is severely enlarged. In ED patient continued to be in A. fib with RVR. She was started on diltiazem bolus and drip. She also received magnesium and potassium supplementation. ED was in contact with cardiology who recommended n.p.o. after midnight and likely DCCV in the a.m. Admission Exam Per Admitting Provider Physical Exam Physical Exam: Constitutional: WD/WN, vitals as above, NAD, sitting up in bed, pleasant, conversing easily Head: Normocephalic, Atraumatic Eyes: PERRL, conjunctivae normal, anicteric sclerae ENMT: external ear and nose normal, oropharynx normal Neck: trachea midline, no thyromegaly normal visual inspection Respiratory: normal respiratory effort, lungs clear to auscultation, no wheeze, rales, rhonchi. Normal insp/exp effort, no accessory muscle use Cardiovascular: IRR/IRR, no murmur, no edema Vessels: no JVD or carotid bruit Chest: normal inspection of chest Abdomen: normal bowel sounds, soft, nontender, no hepatosplenomegaly Musculoskeletal: no cyanosis or clubbing, extremities motor strength 5/5 Skin: no rashes, warm and dry normal turgor Neurologic: PERRL, EOMI, accommodation nl, no face palsy, no dysarthria CN's II-XI intact bilaterally and moves all extremities Psychiatric: A+Ox3, euthymic affect Lymphatic: no cervical or axillary lymphadenopathy : deferred Principal Diagnosis Atrial fibrillation with RVR S/P Cardioversion Discharge Data Allergies Allergy/AdvReac Type Severity Reaction Status Date / Time latex Allergy Intermediate HIVES Verified 01/27/21 18:02 Consultations 01/27/21 18:42 ED Decision to Admit Stat 01/27/21 22:21 Consult Cardiology Routine Procedures Performed Operation Date: 01/28/21 11:45 Actual Procedures p Cardioversion - Taras Ash DO Hospital Course (1) Atrial fibrillation with RVR: (2) Hypertension: (3) Borderline hyperlipidemia: (4) SARANYA on CPAP: Patient is a 80 yr female who has significant past medical history of PAF anticoagulated on Eliquis, history of left atrial appendage thrombus, HTN, HLD, SARANYA on CPAP, glaucoma who presents to ED at the referral of cardiology secondary to A. fib with RVR. Afib with RVR H/O recurrent paroxysmal atrial fibrillation S/P successful cardioversion Compliance with CPAP use likely cause for recurrence Cardizem drip discontinued Continue Eliquis for anticoagulation Continue metoprolol for rate control Advised to follow-up with cardiology in 1 week HTN continue amlodipine, metoprolol On Lasix/Aldactone 3x/wk HLD continue Statin SARANYA CPAP at HS DVT Px: Eliquis Code Status FULL CODE Total Time Total Time Spent Total Time Spent (In Minutes): 42 minutes Discharge Plan Discharge Items Patient Disposition: Home - Self-Care Reason For Visit: RECURRENT AF Discharge Diagnosis: Atrial fibrillation with RVR S/P Cardioversion Activity: Per Instructions section Exercise/Sports: Wait until after follow-up appointment Non-emergency contact: Primary Care Provider and General Milling Superintendent Call non-emergency contact if: you have any medication questions, your symptoms worsen, your pain is not controlled, your pain is concerning for you and you have a fever Follow-up/Referrals: Inga Fontaine PA-C [Primary Care Provider] - (Date & Time 02/03/2021 3:00 PM Provider Paulina So [facility] ) Diet: Heart Healthy Addtl Attending Provider Instructions: Follow-up with your primary care physician Inga Fontaine PA-C on 02/03/2021 3:00 PM Follow-up with your community health nursing director as advised. Seek immediate medical attention if your symptoms reoccur or worsen Please take all medications as instructed on discharge list below. Please call if you have any questions or problems. You can reach a [facility] hospitalist on duty at [facility] 24 hours a day by calling [phone] Pending Studies at Discharge: No Stand-Alone Forms: My [facility], Smoking Cessation Medications and DC Order Prescriptions: Continued travoprost [Travatan Z] 0.004 % drops 1 drp OPB HS RF: 0 Ocuvite Adult 50 Plus 250-5-1 mg Capsule 1 cap PO DAILY RF: 0 loratadine 10 mg Tablet 10 mg PO DAILY RF: 0 Eliquis 5 mg Tablet 5 mg PO BID Qty: 60 RF: 5 metoprolol succinate 100 mg tablet extended release 24 hr 100 mg PO DAILY RF: 0 amlodipine 5 mg tablet 5 mg PO DAILY RF: 0 rosuvastatin 5 mg tablet 5 mg PO DAILY RF: 0 spironolactone 25 mg tablet 25 mg PO 3XWK RF: 0 furosemide 20 mg tablet 20 mg PO 3XWK RF: 0 Discharge Orders: Discharge Order (Routine); Ordered 01/28/21 Ordered By: Ari Osei Admission Data Admit Date/Time: 01/27/21 20:29 Attending Provider: Ari Osei Admit Provider: Hans Vera Primary Care Provider: Inga Fotnaine Other Providers: Hans Vera ; Taras Ash ; Michael Prince ; Gerardo Stevenson ; Huber Paz ; Fletcher Caicedo ; Mal Joshi ; Tamika Isabel ; Sari Lara ; Anel Hamm ; Dc Wu Other Interventions: Discharge Summary Assessment (RN) Last Done: 01/28/21 16:40
== END 2021-01-28 17:06 | disposition home or self-care (01) | DRG 310 ==
LOC: ED 17:11 → 2S 20:29